=== PATIENT | male | born 1945 | race Caucasian/White ===

== ENCOUNTER 2024-10-12 01:37 | Emergency (ER) | payer MEDICARE, SELFPAY ==
--- OUTSIDE RECORDS SUMMARY | 2024-10-12 01:39 | XMS_ITS | Clinical Summary ---
Author Organization [facility] Address [address] [place] [address] Care Team Providers Care Pony Worker Name Role Phone Parker Reeves MD Primary Care Provider Roddy hernandez Allergies No known active allergies Social History Tobacco Use Types Packs/Day Years Used Date Smoking Tobacco: Never Smokeless Tobacco: Never Alcohol Use Standard Drinks/Week Comments Yes 0 (1 standard drink = 0.6 oz pur e alcohol) occasional AUDIT-C Answer Date Recorded Frequency of Alcohol Consumption Never 01/02/2019 Average Number of Drinks Not on file 019 Frequency of Binge Drinking Not on file 07/2018 Sex and Gender Information Value Date Recorded Sex Assigned at Not on file Legal Sex Male 7:03 PM CDT Gender Identity Not on file Sexual Orientation Not on file Last Filed Vital Signs Vital Sign Reading Time Taken Comments Blood Pressure 133/83 01/02/2019 3:05 PM CDT Pulse 80 01/02/2019 3:05 PM CDT Temperature 36.5 C (97.7 F) 01/02/2019 3:05 PM CDT Respiratory Rate 16 01/02/2019 3:05 PM CDT Oxygen Saturation 95% 01/02/2019 3:05 PM CDT Inhaled Oxygen Concentration - - Weight 83.9 kg (185 lb) 01/02/2019 3:05 PM CDT Height 177.8 cm (5' 10 ) 01/02/2019 3:05 PM CDT Body Mass Index 26.54 01/02/2019 3:05 PM CDT Plan of Treatment Health Maintenance Due Date Last Done Comments DTaP, Tdap and Td Vaccines ( 1 - Tdap) 10[birth year]09/1964 Annual Medicare Wellness Visit 2009 Pneumococcal Vaccine: 65+ Years (2 of 2 - PPSV23 or PCV20) 04/19/2017 04/19/2016 RSV Immunization or 60+ Years (1 - 1-dose 75+ series) 10/09/2019 COVID-19 Vaccine (3 - 2023-2 5 season) 2024 09/10/2020, 08/07/2020 Zoster Vaccines Completed 08/04/2018, 03/13/2018, 01/12/2012 Meningococcal B Vaccine Aged Out No l onger eligible based on patient's age to complete this topic Meningococcal Vaccine Aged Out No jude clair eligible based on patient's age to complete this topic RSV Immunizations Under 20 Months Aged Out No longer eligible b ased on patient's age to complete this topic Insurance MED REPLACE [facility] MEDICARE [place] [id number] MED REPLACE [facility] MEDICARE Care Teams Pony Worker Relationship Specialty Start Date End Date Parker Reeves MD PCP - General INTERNAL MEDICINE 01/02/19
--- OUTSIDE RECORDS SUMMARY | 2024-10-12 01:39 | XMS_ITS | Encounter Summary ---
Author Organization [facility] Address [address] [place] [address] Phone Care Team Providers Care Tour Actor Name Role Phone Bhavna Land MD Primary Care Provider [phone] Balaji Tovar MD PhD Unavailable [phone] Kianna Rodríguez PILOT BOAT OPERATOR Unavailable [phone] Kaur Fishman OD Unavailable [phone] Encounter Details Date Type Department Care Team (Latest Contact Info) Description 06/12/2024 Orders Only [facility] Scanning, Provider Social History Tobacco Use Types Packs/Day Years Used Date Smoking Tobacco: Never Passive Smoke Exposure: Never Smokeless Tobacco: Never Alcohol Use Standard Drinks/Week Comments Yes 1 (1 standard drink = 0.6 oz pur e alcohol) rare AUDIT-C Answer Date Recorded Q1: How often do you have a drink containing alc ohol? Never 03/28/2024 Q2: How many drinks containi ng alcohol do you have on a typical day when you are drinking? 1 or 2 03/28/2024 Q3: How often do you have six or more drinks on one occasion? Never 03/28/2024 PHQ-2 Answer Date Recorded PHQ-2 Total Score (If total score is 3 or more points, staff should administer the PHQ-9) 0 05/04/2024 PHQ-9 Answer Date Recorded PHQ-9 Total Score 6 05/03/2024 Personal Safety Answer Date Recorded Have you ever been in or are you currently in a harmful physical or emotional relationship or is someone making you feel afraid or unsafe? 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 Gender Identity Male 12/20/2019 7:46 PM CDT Sexual Orientation Straight 12/20/2019 7: 46 PM CDT documented as of this encounter Plan of Treatment Scheduled Procedures Name Priority Associated Diagnoses Date/Ti me COLONOSCOPY Screening for colon cancer documented as of this encounter Procedures Procedure Name Priority Date/Time Associated Diagnosis Comments SCAN - RADIOLOGY/IMAGING 06/12/2024 SCAN - LABS 06/12/2024 documented in this encounter Results * SCAN - LABS (06/12/2024) us Provider Scanning Final Result * SCAN - RADIOLOGY/IMAGING (06/12/2024) Anatomical Region Laterality Modality Other us Provider Scanning Edited Result - Final documented in this encounter Visit Diagnoses Not on filedocumented in this encounter Care Teams Tour Actor Relationship Specialty Start Date End Date Bhavna Land MD [address] [phone] PCP - General Sleep Medicine 12/11/20 Balaji Tovar MD PhD [address] [facility] [address] [place] [address] Medical Oncologist/Assistant Sales Director Medical Oncology 01/25/24 Kianna Rodríguez NP [address] [phone] Internal Medicine 01/25/24 Kaur Fishman OD [address] [phone] Referring Physician Optometry 09/14/24 documented as of this encounter
--- OUTSIDE RECORDS SUMMARY | 2024-10-12 01:40 | XMS_ITS | Clinical Summary ---
Author Organization [facility] Address [address] Aguayo: Epic Prelude ADT JOR[place] A SPICER [address] Care Team Providers Care Catering Director Name Role Phone Unavailable Primary Care Provider Unavailabl e Allergies Active Allergy Reactions Criticality Noted Date Comments Tramadol Unknown 07/07/2013 Vancomycin Hcl Unknown 07/07/2013 Active Problems Problem Noted Date Diagnosed Date Hyperlipidemia 07/07/2013 Type II or unspecified type diabetes mellitus without mention of complication, not stated as uncontrolled 07/07/2013 Encounters Date Type Department Care Team Description 10/03/2024 External Device Data [facility] ABSTRACTION Provider, Abstract 09/20/2024 External Device Data [facility] ABSTRACTION Provider, Abstract 09/11/2024 2:15 PM CDT Ancillary Procedure [facility] [place] [address] [place] [address] Balaji Tovar MD 09/09/2024 External Device Data [facility] ABSTRACTION Provider, Abstract 09/08/2024 External Device Data [facility] ABSTRACTION Provider, Abstract 09/06/2024 9:00 AM HEAD IRRIGATOR Ancillary Procedure [facility] [place] [address] [place] [address] Balaji Tovar MD Mass of knee, left (Primary Dx); 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 External Device Data [facility] ABSTRACTION Provider, Abstract 08/23/2024 External Device Data [facility] ABSTRACTION Provider, Abstract 08/01/2024 External Device Data [facility] ABSTRACTION Provider, Abstract from Last 3 Months Family History Medical History Relation Name Comments Healthy Brother 1 Healthy Brother 2 Other Father old age Healthy Mother Relation Name Status Comments Brother 1 Alive Brother 2 Alive Father Mother Alive Social History Tobacco Use Types Packs/Day Years Used Date Smoking Tobacco: Never Smokeless Tobacco: Never Alcohol Use Standard Drinks/Week Comments No 0 (1 standard drink = 0.6 oz pur e alcohol) Sex and Gender Information Value Date Recorded Sex Assigned at Not on file Legal Sex Male 7:57 AM HEAD IRRIGATOR Gender Identity Not on file Sexual Orientation Not on file Plan of Treatment Health Maintenance Due Date Last Done Comments DIABETES MICROALBUMIN ANNUAL SCREEN 1963 LDL CHOLESTEROL ANNUAL 1963 RSV VACCINE (60+ or ) (1 - 1-dose 75+ series) 10/09/2019 DIABETES ANNUAL RETINAL EXAM 12/24/2020 12/25/2019, 03/21/2019 COVID-19 Vaccine (2023-2 5 season) 2024 03/31/2023, 04/07/2022, 10/02/2021, Additional history exists DIABETES HBA1C Q 6 MONTHS 11/01/2024 05/04/2024, DIABETES ANNUAL FOOT EXAM 05/04/2025 05/04/2024 DTAP/TDAP/TD VACCINES (2 - T d or Tdap) 04/29/2026 04/29/2016 PNEUMOCOCCAL VACCINE 50+ YEARS Completed 04/14/2017 , 04/19/2016 ZOSTER VACCINE Completed 08/04/2018, 03/05, 03/13/2018, Additional history exists COLORECTAL SCREENING Discontinued 01/07/2023, 01/08/20 23 Colorectal Cancer Screening Discontinued INFLUENZA VACCINE Completed 04/06/2024, , 03/18/2021, Additional history exists FIT-DNA Q 3 years Discontinued FIT/FOBT Q 1 year Discontinued Flex Sig/CT Colonography Q 5 years Discontinued Procedures Procedure Name Priority Date/Time Associated Diagnosis Comments MRI KNEE W WO CONTRAST LEFT Routine 09/11/2024 2:51 PM CDT Mass of knee, left CT CHEST ABDOMEN PELVIS W CONT Routine 09/06/2024 9:17 AM HEAD IRRIGATOR Mass of knee, left Endotheliosarcoma (CMS/HCC) POC CREATININE Routine 09/06/2024 9:04 AM HEAD IRRIGATOR Mass of knee, left from Last 3 Months Results * MRI KNEE W WO CONTRAST LEFT (09/11/2024 2:51 PM CDT) Anatomical Region Laterality Modality Lower Extremity Magnetic Resonan ce 09/11/2024 2:53 PM CDT Impressions 09/11/2024 3:14 PM CDT IMPRESSION: 1. Mild enhancement at the resection bed as expected with no evidence of mass recurrence or new mass. 2. Expected postoperative changes. Follow-up according to cancer treatment protocol. Narrative 09/11/2024 3:14 PM CDT EXAM: MRI KNEE W WO CONTRAST LEFT DATE: 09/11/2024 HISTORY: Mass of knee, left. Sarcoma, status post resection. COMPARISON: MRI of the left knee from 06/12/2024 and 02/10/2024. TECHNIQUE: Multiplanar, multisequence pre and post IV contrast. Gadopiclenol 0.5 mmol per milliliter IV, 9 mL given. FINDINGS: The masslike area of sclerosis noted distal thigh that is involving the gracilis muscle and vastus medialis muscle remain relatively stable in size since the prior study. The area of STIR hyperintensity and muscle fibers measures 4.2 x 6.1 cm compared with 5.3 x 6.5 cm. Previously seen fluid collection at the distal gracilis muscle belly at the surgical site has apparently resolved. High T2 signal and low T1 signal in the resection bed and muscle belly and there is disorganized fibers and appears to be edema within the muscle fibers is nonenhancing and is not significantly changed since the prior postoperative MRI. On postcontrast imaging there is some enhancement in the resection bed similar to the prior study but no focal nodular growth. Bone marrow is normal. Procedure Note Ja Anglin MD - 09/11/2024 EXAM: MRI KNEE W WO CONTRAST LEFT DATE: 09/11/2024 HISTORY: Mass of knee, left. Sarcoma, status post resection. COMPARISON: MRI of the left knee from 06/12/2024 and 02/10/2024. TECHNIQUE: Multiplanar, multisequence pre and post IV contrast. Gadopiclenol 0.5 mmol per milliliter IV, 9 mL given. FINDINGS: The masslike area of sclerosis noted distal thigh that is involving the gracilis muscle and vastus medialis muscle remain relatively stable in size since the prior study. The area of STIR hyperintensity and muscle fibers measures 4.2 x 6.1 cm compared with 5.3 x 6.5 cm. Previously seen fluid collection at the distal gracilis muscle belly at the surgical site has apparently resolved. High T2 signal and low T1 signal in the resection bed and muscle belly and there is disorganized fibers and appears to be edema within the muscle fibers is nonenhancing and is not significantly changed since the prior postoperative MRI. On postcontrast imaging there is some enhancement in the resection bed similar to the prior study but no focal nodular growth. Bone marrow is normal. IMPRESSION: 1. Mild enhancement at the resection bed as expected with no evidence of mass recurrence or new mass. 2. Expected postoperative changes. Follow-up according to cancer treatment protocol. us Balaji Tovar MD MR ORDERABLES Final R esult * CT CHEST ABDOMEN PELVIS W CONT (09/06/2024 9:17 AM HEAD IRRIGATOR) Anatomical Region Laterality Modality Chest Computed Tomogra phy 09/06/2024 9:05 AM HEAD IRRIGATOR Addenda Addendum by Mulugeta Todd MD on 09/06/2024 12:16 PM HEAD IRRIGATOR Findings communicated to Dr. Tovar's office at the completion of the exam 09/06/2024 12:07pm by Diane ruiz with [employer] she will pass along to MD Ng 09/06/2024 11:00 AM HEAD IRRIGATOR IMAGING STUDIES: CT CHEST ABDOMEN PELVIS W CONT DATE: 09/06/2024 9:17 AM COMPARISON STUDIES: CT chest, abdomen and pelvis June 12, 2024 CLINICAL HISTORY: Mass of knee, left; Endotheliosarcoma (CMS/HCC). Staging. TECHNIQUE: Axial images were acquired from the thoracic inlet to the symphysis pubis after the administration of intravenous contrast. Sagittal and coronal reconstructions were evaluated. Radiation dose reduction technique was utilized. CONTRAST: IOPAMIDOL 61 % INTRAVENOUS SOLUTION (SINGLE USE VIAL) Given:100 mL CHEST Trachea and airway: No endotracheal lesions. Pleural space: No pleural effusion or pneumothorax. Lung parenchyma: Lungs are clear, no airspace disease. Left lower lobe perifissural small flat fusiform nodule 8 x 2 mm image 58. Mediastinum: The visible lymph nodes do not appear pathologically enlarged. Axillary and supraclavicular soft tissues: No obvious lymphadenopathy. Cardiovascular: No aneurysmal dilation. Mild atherosclerotic aorta.. Coronary artery calcifications. Bones: No significant bony abnormalities. IMPRESSION CHEST: 1. No evidence of metastatic disease to the chest. Stable benign-appearing perifissural nodule left major fissure. Rest as above. ABDOMEN AND PELVIS: TECHNIQUE: Helical axial images were acquired from the lung bases to the symphysis pubis after the administration of intravenous contrast. Sagittal and coronal reconstructions were created. Radiation dose reduction technique was utilized. FINDINGS: ABDOMEN: Hepatobiliary: Redemonstration of a simple appearing cyst in the right hepatic lobe 18 mm in diameter. Single calcified 8 mm gallstone, no surrounding inflammatory changes Spleen: No lesions, no splenomegaly. Pancreas: No focal lesions. Adrenal glands: No focal lesions. Kidneys: No focal lesions. No hydronephrosis or nephrolithiasis. Redemonstration of bilateral simple appearing cysts, the largest is located in the right kidney upper pole measures 3.7 cm. Retroperitoneal and mesenteric space: The visible lymph nodes do not appear pathologically enlarged. Stomach and bowel: Nonobstructive pattern. Small bowel malrotation with the angle of Treitz located to the right of midline. Aorta: No significant atherosclerotic disease or aneurysmal dilation. PELVIS: Appendix: Not pathologically distended. Colon and rectum: Extensive diverticulosis of the descending colon and sigmoid. Short segment of fat stranding involving the distal descending colon with a satellite probably reactive subcentimeter lymph node, mucosal thickening, no fluid collection abscess or perforation. Genitourinary: The prostate does not appear pathologically enlarged. No urinary bladder stones or abnormal wall thickening. Pelvic space: Small fat-containing right inguinal hernia.. BONES AND OTHER INCIDENTALS: Chronic sacroiliitis with right-sided bridging osteophytes. Severe lower lumbar facet arthropathy. Severe degenerative disc disease L5-S1. Right worse than left hip osteoarthritis. IMPRESSION ABDOMEN AND PELVIS: 1. No conclusive evidence of metastatic disease to the abdomen or pelvis. 2. Acute diverticulitis of the distal descending colon, correlate clinically, consider colonoscopy if not done in the recent past to exclude underlying lesion. 3. Redemonstration of simple appearing hepatic and renal cysts. 4. Other incidental findings including: Congenital small bowel malrotation. Small fat-containing right inguinal hernia. Skeletal degenerative changes and findings as described above. Procedure Note Mulugeta Todd MD - 09/06/2024 IMAGING STUDIES: CT CHEST ABDOMEN PELVIS W CONT DATE: 09/06/2024 9:17 AM COMPARISON STUDIES: CT chest, abdomen and pelvis June 12, 2024 CLINICAL HISTORY: Mass of knee, left; Endotheliosarcoma (CMS/HCC). Staging. TECHNIQUE: Axial images were acquired from the thoracic inlet to the symphysis pubis after the administration of intravenous contrast. Sagittal and coronal reconstructions were evaluated. Radiation dose reduction technique was utilized. CONTRAST: IOPAMIDOL 61 % INTRAVENOUS SOLUTION (SINGLE USE VIAL) Given:100 mL CHEST Trachea and airway: No endotracheal lesions. Pleural space: No pleural effusion or pneumothorax. Lung parenchyma: Lungs are clear, no airspace disease. Left lower lobe perifissural small flat fusiform nodule 8 x 2 mm image 58. Mediastinum: The visible lymph nodes do not appear pathologically enlarged. Axillary and supraclavicular soft tissues: No obvious lymphadenopathy. Cardiovascular: No aneurysmal dilation. Mild atherosclerotic aorta.. Coronary artery calcifications. Bones: No significant bony abnormalities. IMPRESSION CHEST: 1. No evidence of metastatic disease to the chest. Stable benign-appearing perifissural nodule left major fissure. Rest as above. ABDOMEN AND PELVIS: TECHNIQUE: Helical axial images were acquired from the lung bases to the symphysis pubis after the administration of intravenous contrast. Sagittal and coronal reconstructions were created. Radiation dose reduction technique was utilized. FINDINGS: ABDOMEN: Hepatobiliary: Redemonstration of a simple appearing cyst in the right hepatic lobe 18 mm in diameter. Single calcified 8 mm gallstone, no surrounding inflammatory changes Spleen: No lesions, no splenomegaly. Pancreas: No focal lesions. Adrenal glands: No focal lesions. Kidneys: No focal lesions. No hydronephrosis or nephrolithiasis. Redemonstration of bilateral simple appearing cysts, the largest is located in the right kidney upper pole measures 3.7 cm. Retroperitoneal and mesenteric space: The visible lymph nodes do not appear pathologically enlarged. Stomach and bowel: Nonobstructive pattern. Small bowel malrotation with the angle of Treitz located to the right of midline. Aorta: No significant atherosclerotic disease or aneurysmal dilation. PELVIS: Appendix: Not pathologically distended. Colon and rectum: Extensive diverticulosis of the descending colon and sigmoid. Short segment of fat stranding involving the distal descending colon with a satellite probably reactive subcentimeter lymph node, mucosal thickening, no fluid collection abscess or perforation. Genitourinary: The prostate does not appear pathologically enlarged. No urinary bladder stones or abnormal wall thickening. Pelvic space: Small fat-containing right inguinal hernia.. BONES AND OTHER INCIDENTALS: Chronic sacroiliitis with right-sided bridging osteophytes. Severe lower lumbar facet arthropathy. Severe degenerative disc disease L5-S1. Right worse than left hip osteoarthritis. IMPRESSION ABDOMEN AND PELVIS: 1. No conclusive evidence of metastatic disease to the abdomen or pelvis. 2. Acute diverticulitis of the distal descending colon, correlate clinically, consider colonoscopy if not done in the recent past to exclude underlying lesion. 3. Redemonstration of simple appearing hepatic and renal cysts. 4. Other incidental findings including: Congenital small bowel malrotation. Small fat-containing right inguinal hernia. Skeletal degenerative changes and findings as described above. us Balaji Tovar MD CT ORDERABLES Edited Result - Final * POC CREATININE (09/06/2024 9:04 AM HEAD IRRIGATOR) CREATININE POC 1.20 0.60 - 1.30 mg/dL 09/06/2024 9:04 AM HEAD IRRIGATOR [employer] [facility] Comment:The GFR result is no t clinically significant on patients <18 or >70 years of age. GFR, >60 mL/min/1.7 3 sq meter 09/06/2024 9:04 AM HEAD IRRIGATOR [employer] [facility] GFR POC 58 mL/min/1.7 3 sq meter 09/06/2024 9:04 AM [employer] [facility] Comment: eGFR has not been validated for use in the elderly (> 70 years of age), women, patients with serious co-morbid conditions, or persons with extremes of body size or muscle mass and should also be interpreted with caution in patients with acute kidney failure, dialysis dependent patients, patients reporting exceptional dietary intake (e.g. vegetarian diet, high protein diets, creatine supplementation), and patients with severe liver disease. Based on National Kidney Disease Education Program If patient is , please refer to the GFR result. Blood, whole 09/06/2024 9:04 AM HEAD IRRIGATOR 09/06/2024 9:06 AM HEAD IRRIGATOR us Balaji Tovar MD POINT OF CARE TESTING F inal Result [facility] [place]# [id number] [address] [place] [address] from Last 3 Months Insurance [facility]
--- OUTSIDE RECORDS SUMMARY | 2024-10-12 01:40 | XMS_ITS | Referral Summary ---
Author Organization [facility] Address [address] [place] [address] Care Team Providers Care Executor Of Estate Name Role Phone Bhavna Land MD Primary Care Provider [phone] Balaji Tovar MD PhD Unavailable [phone] Kianna Rodríguez CAR UNLOADER HELPER Unavailable [phone] Kaur Fishman OD Unavailable [phone] Encounters Date Type Department Care Team Description 09/18/2024 1:00 PM CDT Office Visit [facility] Ophthalmology [address] [facility] 2nd Floor [address] [place] [address] Stefan Beltrán MD AMD (age-related macular degeneration), bilateral (Primary Dx) 09/13/2024 Orders Only [facility] Oncology [address] [place] [address] Floor 6 [place] [id number] Balaji Tovar MD PhD Sarcoma of left thigh (HCC) (Primary Dx) 09/13/2024 2:35 PM CDT Telemedicine [facility] Oncology [address] [place] [address] 6 [place] [id number] Balaji Tovar MD PhD Sarcoma of left thigh (HCC) (Primary Dx); Mass of left knee 09/11/2024 Orders Only [facility] Scanning, Provider 09/11/2024 Telephone [facility] Ophthalmology [address] [facility] 6th [place] [address] No, Physician 09/07/2024 Orders Only [facility] Hematology [address] [facility] Floor [address] [place] [address] Balaji Tovar MD PhD Sarcoma of left thigh (HCC) (Primary Dx) 09/07/2024 1:00 PM PIG LEAD MELTER HELPER Office Visit [facility] [address] [facility] [address] [place] [address] Kaur Fishman, OD AMD (age-related macular degeneration), bilateral (Primary Dx) 09/06/2024 Orders Only [facility] Scanning, Provider 08/28/2024 Orders Only [facility] Oncology [address] [facility] Floor 6 [place] [address] Balaji Tovar MD PhD History of sarcoma (Primary Dx) from Last 3 Months Allergies Active Allergy Reactions Criticality Noted Date Comments Lisinopril Cough,Rash Medium 04/02/2021 [facility] cough Medications simvastatin (ZOCOR) 40 mg tabletIndications: Mixed hyperlipidemia TAKE 1 TABLET NIGHTLY 90 tablet 3 09/28/19 24 Active losartan (COZAAR) 25 mg tabletIndications: Type 2 diabetes mellitus without complication, without long-term current use of insulin (HCC) TAKE 1 TABLET DAILY 90 tablet 3 09/28/19 24 Active krill oil 500 mg capsule Take 500 mg by mouth daily 01/05/20 21 Active ulwdwbbe-wah-QV-ly copen-lutein (Complete MV Adult 50 Plus) 0.4 mg-300 mcg- 250 mcg tabletIndications: Vitamin Deficiency Prevention Take 1 tablet by mouth daily 11/05/19 21 Active magnesium aspart,citrate,oxi de 400 mg magnesium capsuleIndications :hypomagnesemia Take 1 tablet by mouth daily Active tamsulosin (FLOMAX) 0.4 mg extended release capsule Take 1 capsule (0.4 mg total) by mouth daily with dinner 04/05/20 24 Active senna-docusate (PERICOLACE) 8.6-50 mgIndications:cons tipation Take 2 tablets by mouth 2 (two) times a day 04/05/20 Active polyethylene glycol (MIRALAX) 17 gram/dose bulk powderIndications: constipation Take 17 g by mouth daily 04/05/20 Active ondansetron ODT (ZOFRAN-ODT) 4 mg disintegrating tabletIndications: nausea and vomiting Take 1 tablet (4 mg total) by mouth every 6 (six) hours as needed for nausea or vomiting 04/05/20 Active methocarbamoL (ROBAXIN) 750 mg tablet Take 1 tablet (750 mg total) by mouth 3 (three) times a day 04/05/20 Active loratadine (CLARITIN) 10 mg tablet Take 1 tablet (10 mg total) by mouth daily 04/06/20 Active gabapentin (NEURONTIN) 300 mg capsuleIndications :Pain Take 1 capsule (300 mg total) by mouth 3 (three) times a day 04/05/20 Active fluticasone propionate (FLONASE) 50 mcg/actuation nasal spray Administer 1 spray into each nostril daily 04/06/20 Active cyclobenzaprine (FLEXERIL) 10 mg tabletIndications: Muscle Spasm Take 1 tablet (10 mg total) by mouth every 8 (eight) hours as needed for muscle spasms 04/05/20 Active celecoxib (CeleBREX) 200 mg capsuleIndications :Pain Take 1 capsule (200 mg total) by mouth 2 (two) times a day 04/05/20 Active bisacodyL (DULCOLAX) 10 mg suppositoryIndicat ions:constipation, if cannot tolerate oral Insert 1 suppository (10 mg total) into the rectum 2 (two) times a day as needed for constipation 04/05/20 Active acetaminophen 500 mg capsuleIndications :Pain Take 2 capsules (1,000 mg total) by mouth every 6 (six) hours 04/05/20 Active enoxaparin (LOVENOX) 40 mg/0.4 mL syringe Inject 0.4 mL (40 mg total) under the skin daily Once daily for 30 days 04/05/20 Active aspirin 81 mg enteric coated tablet Take 1 tablet (81 mg total) by mouth daily Once daily for 30 days 04/05/20 Active testosterone 20.25 mg/1.25 gram (1.62 %) gel in metered-dose pumpIndications:Te stosterone deficiency APPLY THE CONTENTS OF 4 PUMP ACTUATIONS (81MG) ON THE SKIN DAILY 300 g 5 05/04/20 Active diazePAM (VALIUM) 5 mg tablet Take 1 tablet (5 mg total) by mouth once for 1 dose Prior to MRI scan. 1 tablet 09/14/19 Active Active Problems Problem Noted Date Diagnosed Date Open wound of leg, left, initial encounter 03/28 Mass of left thigh 03/21/2024 Open wound of left lower leg 03/13/2024 Grief 10/28/2023 Assessment & Plan (10/28/2023 7:36 PM CDT): In the setting of his partner of 5 years passing away in July. Patient is coping and grief response is appropriate. He will let me know if he finds grief symptoms increase or become more problematic for day-to-day quality of life. Eczema 10/21/2022 Assessment & Plan (04/28/2023 9:11 AM CDT): Chronic, stable. Continue as needed fluocinonide. Assessment & Plan (10/21/2022 11:23 AM CDT): Chronic, stable. Continue as needed topical steroids. Screening for colon cancer 10/21/2022 Lumbar degenerative disc disease 04/16/2022 Assessment & Plan (10/28/2023 7:36 PM CDT): Chronic, with benefit from physical therapy. We discussed the importance of continuing with regular exercise routine. Trial of meloxicam for pain relief. Consider trial of Lyrica in future. Assessment & Plan (04/16/2022 1:58 PM CDT): Chronic, persistent, with significant impact to patient's quality of life. Referral placed to Orthopedics for further evaluation and review of any available treatment options. Encounter for Medicare annual wellness exam 04/04 Assessment & Plan (04/28/2023 9:12 AM CDT): Patient is doing well overall. No substance use of concern. Healthy weight management recommended. Blood pressures are well controlled. We will check routine labs today. He is up-to-date on vaccines and age-appropriate cancer screening. Assessment & Plan (04/16/2022 1:58 PM CDT): From a preventative care standpoint no substance use of concern. Healthy weight management recommended. Blood pressures are well controlled. We will check routine labs today. Flu shot recommended for the fall. Otherwise up-to-date on labs. Up-to-date on cancer screening. Chronic cough 09/01/2021 Assessment & Plan (09/10/2021 10:31 AM PIG LEAD MELTER HELPER): Chronic, not improved with oral antihistamine and intranasal steroid spray. Referral placed to ENT for further evaluation. Assessment & Plan (09/01/2021 1:58 PM PIG LEAD MELTER HELPER): Of several months duration. No obvious medication culprits. No recent infections to suggest this is a post viral cough. We discussed other common causes of chronic cough including acid reflux, rhinosinusitis with postnasal drip, and asthma. He has no history of lung disease and denies any acid reflux symptoms. Therefore we will start by treating this as allergic versus nonallergic rhinosinusitis. Will have patient start on an oral antihistamine and resume use of Nasacort. I have ordered a chest x-ray. Further steps in evaluation could include CT chest and lung function testing. Lumbar radiculopathy 12/29/2020 Assessment & Plan (10/28/2023 7:37 PM CDT): Chronic, with concern that left thigh and leg numbness is related to lumbar degenerative disc disease. Given that numbness is more medial than lateral, lower suspicion for lateral femoral cutaneous nerve entrapment. Continue management of lumbar degenerative disc disease and monitor. Could consider nerve conduction testing if symptoms persist or worsen. Spinal stenosis of lumbosacral region 12/29/2020 Hyperlipidemia 12/23/2020 Assessment & Plan (04/28/2023 9:12 AM CDT): Chronic, stable, effectively treated with simvastatin. Continue current therapy. Assessment & Plan (10/21/2022 11:22 AM CDT): Chronic, stable, effectively treated with simvastatin. Continue current therapy. Assessment & Plan (04/16/2022 1:57 PM CDT): Chronic, stable. Continue simvastatin. Labs today. Assessment & Plan (12/23/2020 9:23 PM CDT): Check lipid panel today. Refills of simvastatin provided. Testosterone deficiency 12/23/2020 Assessment & Plan (10/28/2023 7:37 PM CDT): Chronic, effectively treated with testosterone gel based on most recent lab work. Will recheck labs today. Continue AndroGel. Assessment & Plan (04/28/2023 9:12 AM CDT): Chronic, effectively treated with testosterone gel based on most recent lab work. Will recheck labs today and refill testosterone therapy, adjusting dose as indicated. Assessment & Plan (10/21/2022 11:22 AM CDT): Chronic, previously effectively treated with testosterone gel based on most recent lab work. Will recheck labs today and refilled testosterone therapy, adjusting dose as indicated. Assessment & Plan (04/16/2022 1:57 PM CDT): Chronic. Recheck testosterone today. Uptitration of testosterone replacement therapy if indicated. Assessment & Plan (01/10/2021 4:40 PM CDT): We discussed AndroGel formulation in the pump which he currently has. We will try switching him to the packets to see if this is more convenient and cost effective. Assessment & Plan (12/23/2020 9:23 PM CDT): Recheck testosterone level. Refill of androgel provided. 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 Continue testosterone therapy. Continue sildenafil as needed with benefit. Assessment & Plan (04/16/2022 1:58 PM CDT): Chronic. Continue testosterone therapy. Continue sildenafil as needed. Assessment & Plan (12/23/2020 9:24 PM CDT): Continue testosterone supplementation. Prescription for sildenafil provided. Chronic bilateral low back pain with right-sided sciatica 12/23/2020 Assessment & Plan (10/21/2022 11:22 AM CDT): Chronic, much improved following physical therapy. Continue regular exercises and monitor. Assessment & Plan (03/11/2021 11:13 AM CDT): Chronic, uncontrolled. We discussed possible next steps in management including Lyrica in place of gabapentin (likely better for radicular symptoms than low back OA pain); oral or topical antiinflammatory agents; or evaluation for procedure by pain management. He is interested in possible treatment by pain management, particularly since he would like to avoid a daily pill if possible. Will obtain lumbar MRI given no recent MRI and presence of radicular symptoms and refer to pain management at [facility]. Assessment & Plan (01/10/2021 4:41 PM CDT): Now back to baseline pain levels. I think trying a new chiropractor is worthwhile. We discussed gentle stretching and strengthening. If pain becomes more bothersome chronically we can try a higher dose of gabapentin or Lyrica instead. He was counseled that if he has another acute episode of pain he can contact me for another prednisone Dosepak, though he and I are in agreement that we want to limit use of steroids as much as possible due to potential risk even from short-term courses. Assessment & Plan (12/23/2020 9:24 PM CDT): We discussed possible options for management and decided on a trial of gabapentin to be taken as needed, such as with driving. Pseudophakia of both eyes 09/16/2020 Assessment & Plan (04/15/2023 2:11 PM CDT): Centered and stable, monitor Assessment & Plan (10/05/2022 10:26 AM CDT): Centered and stable, monitor Assessment & Plan (04/06/2022 3:19 PM CDT): Lenses centered and stable, monitor Assessment & Plan (09/29/2021 1:12 PM CDT): Centered and stable, monitor Assessment & Plan (03/31/2021 10:47 AM CDT): Centered and stable, monitor Assessment & Plan (09/16/2020 10:44 AM CDT): Centered and stable, monitor Allergic conjunctivitis of both eyes 09/16/2020 Type 2 diabetes mellitus wit hout complication, without long-term current use of insulin 09/16/2020 Assessment & Plan (10/28/2023 7:37 PM CDT): Chronic, stable, well controlled without need for medication therapy. Continue losartan, simvastatin. Assessment & Plan (04/28/2023 9:12 AM CDT): Chronic, stable, well controlled without need for medication therapy. Continue losartan, simvastatin. Assessment & Plan (10/21/2022 11:21 AM CDT): Chronic, stable, well controlled without need for medication therapy. Continue losartan, simvastatin. Assessment & Plan (10/05/2022 10:26 AM CDT): No diabetic retinopathy (DR) . Stressed importance of tight blood glucose control/ diet/exercise and A1C <7% to reduce the risk of diabetic complications. Report sent to PCP/endo. Assessment & Plan (04/16/2022 1:57 PM CDT): Chronic, stable, well controlled with diet and lifestyle alone based on last A1c. Labs today. Continue statin, losartan. Assessment & Plan (04/06/2022 3:18 PM CDT): DFE next visit Assessment & Plan (09/10/2021 10:31 AM PIG LEAD MELTER HELPER): Chronic, stable, effectively treated with diet and exercise without need for pharmacologic therapy. Recheck A1c today. Goal A1c less than 7. Assessment & Plan (03/11/2021 11:11 AM CDT): Chronic, stable. Recheck labs today. Restart Januvia if A1c greater than 7. Assessment & Plan (12/23/2020 9:23 PM CDT): Well controlled, with last A1c in 2019 of 5.8. We discussed checking A1c today and taking a break from Januvia for 3 months, at which time we will recheck A1c and consider whether Januvia should be restarted. Target A1c is less than 7.0. Assessment & Plan (09/16/2020 10:59 AM CDT): NO diabetic retinopathy (DR) . Stressed importance of tight blood glucose control/ diet/exercise and A1C <7% to reduce the risk of diabetic complications. Report sent to PCP/endo. Right posterior capsular opacification 0 Assessment & Plan (12/25/2019 8:51 AM CDT): Visually significant PCO right eye (OD). R/b/a discused and the patient decided to proceed. All questions were answered. (also see Procedure note) After proper consent was obtained, the patient was carefully transported to the laser room where the operative eye was anesthetized. Using a contact lens, an opening was created in the posterior capsule without difficulty. The lens was then removed, the eye irrigated, and postop drops given. The patient left the laser suite in good condition and the intraocular pressure was checked 60 minutes post-op in the office. 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 Assessment & Plan (04/15/2023 2:11 PM CDT): Flat, no concerning features, Stable, monitor Assessment & Plan (10/05/2022 10:27 AM CDT): Flat, no concerning features, Stable, monitor Assessment & Plan (09/29/2021 1:11 PM CDT): Stable, monitor Assessment & Plan (03/31/2021 10:46 AM CDT): Stable, monitor Assessment & Plan (01/24/2020 12:37 PM CDT): Stable, monitor Assessment & Plan (12/01/2019 4:26 PM CDT): Difficult view today due to PCO Monitor Assessment & Plan (11/23/2018 11:06 AM CDT): Flat, no heme or fluid Monitor Photo today PCO (posterior capsular opacification), bilatera l 11/23/2018 Assessment & Plan (03/21/2019 10:51 AM CDT): Pseuophakia both eyes (OU)- Surgery performed in [place], [place] around 2009. Uncomplicated. Visually significant PCO left eye (OS) due to central involvement. right eye (OD) without sig symptoms. R/b/a discused and the patient decided to proceed to proceed with YAG left eye (OS) today. All questions were answered. (also see Procedure note) After proper consent was obtained, the patient was carefully transported to the laser room where the operative eye was anesthetized. Using a contact lens, an opening was created in the posterior capsule without difficulty. The lens was then removed, the eye irrigated, and postop drops given. The patient left the laser suite in good condition and the intraocular pressure was checked 60 minutes post-op in the office. Assessment & Plan (11/23/2018 11:06 AM CDT): Refer for yag caps OS AMD (age-related macular degeneration), zeb denis 11/23/2018 Assessment & Plan (09/18/2024 1:13 PM CDT): Sent for evaluation of macular degeneration, has drusen no change in the macula both eyes, there was no sub retinal or intraretinal fluid in either eye. I have asked that he monitor his vision using Amsler grid, we discussed blood pressure control and multivitamin therapy. In addition we encouraged smoking avoidance. I have asked her to return to see Optometry in roughly 6 months' time.. Assessment & Plan (04/15/2023 2:12 PM CDT): Stable mac oct , no cnv Ou Cont amsler and areds Assessment & Plan (10/05/2022 10:25 AM CDT): Stable mac oct , no cnv Ou Assessment & Plan (04/06/2022 3:19 PM CDT): Stable mac oct , no cnv Ou Assessment & Plan (09/29/2021 1:11 PM CDT): Dry amd both eyes (OU) Continue areds/amsler Assessment & Plan (03/31/2021 10:46 AM CDT): Dry amd both eyes (OU) Continue areds/amsler Assessment & Plan (09/16/2020 10:34 AM CDT): Dry amd both eyes (OU) Continue areds/amsler Assessment & Plan (01/24/2020 12:38 PM CDT): Areds Amsler Grid Rtc if vision is distorted or blurred Assessment & Plan (12/01/2019 4:25 PM CDT): Dry amd both eyes (OU) Continue areds/amsler Assessment & Plan (04/26/2019 9:15 AM CDT): Areds Amsler Grid Rtc if vision is distorted or blurred Assessment & Plan (11/23/2018 11:05 AM CDT): Areds Amsler Grid Rtc if vision is distorted or blurred Arthritis of carpometacarpal (CMC) joint of left thumb 06/21/2018 Overview (06/21/2018): Added automatically from request for surgery [id number] Sarcoma of left thigh 03/14/2018 Osteoarthritis of carpometacarpal (CMC) joint of thumb 04/06/2017 Resolved Problems Problem Noted Date Diagnosed Date Resolved Date 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 Differential diagnosis includes kidney stone, pyelonephritis, gallbladder disease with referred pain. Infectious etiology like pyelonephritis less likely given duration of symptoms and lack of fever, other infectious symptoms. Further evaluation is warranted with CT, labs, which I have ordered for the patient today. Diarrhea 01/06/2022 04/28/2023 Assessment & Plan (01/06/2022 1:36 PM CDT): Chronic, concerning for biliary disease given association with right-sided CVA pain. Lower suspicion for infectious etiology given no clear exposure or increased risk. Labs and CT abdomen pelvis ordered for further evaluation. If nonrevealing, consider stool studies, further evaluation for colitis. 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 21 Immunizations Immunization Administration Dates Next Due Influenza, Quad, Adjuvantate d, Intramuscular 03/21/2020 Influenza, Quadrivalent, Coco l Culture-based MDCK, Preservative Free, Antibiotic Free, Intramuscular 04/13/2019 Influenza, Quadrivalent, Hig h Dose, Preservative Free, Intrr 03/18/2021 Influenza, Trivalent, High D ose, Split, Preservative Free, Intramuscular 04/06/2024,03/14/2018,03/13/2018,04/19 Influenza, Trivalent, IM (MDV) 04/06/2024,2016 Influenza, Trivalent, Preser vative Free, Intramuscular 03/21/2020 Moderna SARS-CoV-2 Monovalen t Vaccination (12+ YRS) 10/02/2021,04/24/2021 PPD TEST 04/07/2024 Pfizer Sars-Cov-2 Bivalent V accination (12+ YRS) 03/31/2023,04/07/2022 Pneumococcal Conjugate PCV 13 04/19/2016 Pneumococcal Polysaccharide PPV23 04/14/2017 Tdap 04/29/2016 ZOSTER LIVE 01/12/2012 ZOSTER Recombinant 08/04/2018,03/14/2018, 018 Social History Tobacco Use Types Packs/Day Years [...] on file Legal Sex Male 9:16 PM PIG LEAD MELTER HELPER Gender Identity Male 12/20/2019 7:46 PM CDT Sexual Orientation Straight 12/20/2019 7: 46 PM CDT Last Filed Vital Signs Vital Sign Reading Time Taken Comments Blood Pressure 145/78 06/14/2024 8:53 AM PIG LEAD MELTER HELPER Pulse 92 06/14/2024 8:53 AM PIG LEAD MELTER HELPER Temperature 36.8 C (98.2 F) 06/14/2024 8:53 AM PIG LEAD MELTER HELPER Respiratory Rate 20 05/04/2024 1:07 PM CDT Oxygen Saturation 96% 06/14/2024 8:53 AM PIG LEAD MELTER HELPER Inhaled Oxygen Concentration - - Weight 87.5 kg (193 lb) 06/14/2024 8:51 AM PIG LEAD MELTER HELPER Height 172.7 cm (5' 7.99 ) 06/14/2024 8:51 AM CS T Body Mass Index 29.35 06/14/2024 8:51 AM PIG LEAD MELTER HELPER Plan of Treatment Scheduled Procedures Name Priority Associated Diagnoses Date/Ti me COLONOSCOPY Screening for colon cancer Medical Devices Implanted Type Area Gravure Press Set Up Operator Device Identifier Shelf Expiration Date Model / Serial / Lot Synovis [id number] Anson Microvascular 3.5mm Ring Pin Protective Cover Jaw Assembly Latex Free [id number] - [id number] Implanted:Qty: 1 on 03/28/2024 by Lloyd Gay MD at [facility] Other - see comments Left: Leg Synovis Highlight Allian [id number] 03/21/2028 [id number] / / [id number] Depuy Mitek [id number] Quickanchor Plus Ethibond 2-0 V-5 Mini [place] Suture - [id number] Implanted:Qty: 1 on 07/27/2018 by Duane Nelson MD at [facility] Left: Thumb Depuy Mitek 03/04/[id number] / / [id number] Depuy Mitek [id number] Quickanchor Plus Ethibond 2-0 V-5 Mini [place] Suture - [id number] Implanted:Qty: 1 on 07/27/2018 by Duane Nelson MD at [facility] Left: Thumb Depuy Mitek 03/04/2023 [id number] / / [id number] [employer] Ar-8978-Cp Internalbrace Kit Hand Wrist Set Implant Ligament Augmentation - [id number] Implanted:Qty: 1 on 05/31/2019 by Duane Nelson MD at [facility] Right: Wrist [employer] [id number] 04/03/2024 AR-8978- CP / / [id number] Procedures Procedure Name Priority Date/Time Associated Diagnosis Comments OCT, RETINA - OU - BOTH EYES Routine 09/18/2024 1:13 PM CDT AMD (age-related macular degeneration), bilateral COMPREHENSIVE METABOLIC PANEL Routine 09/11/2024 9:00 AM CDT Sarcoma of left thigh (HCC) CBC WITH AUTO DIFFERENTIAL Routine 09/11/2024 9:00 AM CDT Sarcoma of left thigh (HCC) SCAN - RADIOLOGY/IMAGING 09/11/2024 OCT, RETINA - OU - BOTH EYES Routine 09/07/2024 1:00 PM PIG LEAD MELTER HELPER AMD (age-related macular degeneration), bilateral SCAN - RADIOLOGY/IMAGING 09/06/2024 HEMOGLOBIN A1C Routine 05/04/2024 1:40 PM CDT Type 2 diabetes mellitus without complication, without long-term current use of insulin (HCC) LIPID PANEL Routine 05/04/2024 1:40 PM CDT Type 2 diabetes mellitus without complication, without long-term current use of insulin (HCC) ALBUMIN CREATININE RATIO, URINE Routine 05/04/2024 1:40 PM CDT Type 2 diabetes mellitus without complication, without long-term current use of insulin (HCC) COLONOSCOPY 01/07/2023 7:50 AM CDT from Last 3 Months or Most Recently Relevant to Health Maintenance Results * OCT, Retina - OU - Both Eyes (09/18/2024 1:13 PM CDT) Anatomical Region Laterality Modality Head Optical Coherenc e Tomography Narrative 09/18/2024 1:13 PM CDT Right Eye Quality was good. Scan locations included subfoveal. Progression has been stable. Left Eye Quality was good. Scan locations included subfoveal. Progression has been stable. Notes Drusen, no CNV both eyes (OU) us Stefan Beltrán MD OPHTH TOMOGRAPHY Final Res ult * CBC with auto differential (09/11/2024 9:00 AM CDT) WBC 4.8 3.8 - 10.8 Thousand/u L [facility] RBC, POC 4.95 4.20 - 5.80 Million/uL [facility] Hgb 14.8 13.2 - 17.1 g/dL [facility] Hct 45.7 38.5 - 50.0 % [facility] MCV 92.3 80.0 - 100.0 fL [facility] MCH 29.9 27.0 - 33.0 pg [facility] MCHC 32.4 32.0 - 36.0 g/dL [facility] Comment: For adults, a slight decrease in the calculated MCHC value (in the range of 30 to 32 g/dL) is most likely not clinically significant; however, it should be interpreted with caution in correlation with other red cell parameters and the patient's clinical condition. Rdw 14.2 11.0 - 15.0 % [facility] Platelets 173 140 - 400 Thousand/u L [facility] MPV 10.9 7.5 - 12.5 fL [facility] Neutrophils, abs 2,789 1,500 - 7,800 cells/uL [facility] Lymphocytes, abs 1,162 850 - 3,900 cells/uL [facility] Monocyte abs 619 200 - 950 cells/uL [facility] Eosinophils, abs 202 15 - 500 cells/uL [facility] Basophils, abs 29 0 - 200 cells/uL [facility] Neutrophils 58.1 % [facility] Lymphocyte pct 24.2 % [facility] Monocytes 12.9 % [facility] Eosinophils 4.2 % [facility] Basophils 0.6 % [facility] Blood 09/11/2024 9:00 AM CDT 09/11/2024 9:00 AM CDT Narrative [facility] - 09/11/2024 6:24 PM CDT FASTING:YES FASTING: YES us Balaji Tovar MD PhD LAB BLOOD ORDERABLE S Final Result [facility] [address] [place] [address] * (ABNORMAL) Comprehensive metabolic panel (09/11/2024 9:00 AM CDT) Glucose 168(H) 65 - 99 mg/dL [facility] Comment: Fasting reference interval For someone without known diabetes, a glucose value >125 mg/dL indicates that they may have diabetes and this should be confirmed with a follow-up test. BUN 15 7 - 25 mg/dL [facility] Creatinine 1.19 0.70 - 1.28 mg/dL [facility] eGFR 62 > OR = 60 mL/min/1.[address] [facility] BUN/creat ratio SEE NOTE: 6 - 22 (calc) [facility] Comment: Not Reported: BUN and Creatinine are within reference range. Sodium 139 135 - 146 mmol/L [facility] Potassium, pl 4.4 3.5 - 5.3 mmol/L [facility] Chloride 106 98 - 110 mmol/L [facility] CO2 27 20 - 32 mmol/L [facility] Calcium 8.5(L) 8.6 - 10.3 mg/dL [facility] Protein, sr 6.3 6.1 - 8.1 g/dL [facility] Albumin 4.2 3.6 - 5.1 g/dL [facility] GLOBULIN 2.1 1.9 - 3.7 g/dL (calc) [facility] Alb/glob ratio 2.0 1.0 - 2.5 (calc) [facility] Bilirubin, total 0.4 0.2 - 1.2 mg/dL [facility] Alk phos 47 35 - 144 U/L [facility] AST 17 10 - 35 U/L [facility] ALT (SGPT) 14 9 - 46 U/L [facility] Blood 09/11/2024 9:00 AM CDT 09/11/2024 9:00 AM CDT Narrative [facility] - 09/11/2024 6:24 PM CDT FASTING:YES FASTING: YES Balaji Tovar MD PhD LAB BLOOD ORDERABLE S Final Result [facility] [address] [place] [address] * SCAN - RADIOLOGY/IMAGING (09/11/2024) Anatomical Region Laterality Modality Other us Provider Scanning Final Result * OCT, Retina - OU - Both Eyes (09/07/2024 1:00 PM PIG LEAD MELTER HELPER) Anatomical Region Laterality Modality [facility] Tomography Narrative 09/13/2024 8:49 AM CDT Right Eye Quality was good. Scan locations included subfoveal. Progression has been stable. Left Eye Quality was good. Scan locations included subfoveal. Progression has been stable. Notes Drusen, no CNV both eyes (OU) us Kaur Fishman OD OPHTH TOMOGRAPHY Final Result * SCAN - RADIOLOGY/IMAGING (09/06/2024) Anatomical Region Laterality Modality Other us Provider Scanning Final Result * Albumin Creatinine Ratio, Urine (05/04/2024 1:40 PM CDT) Albumin Ur <12.0 mg/L Comment: Interpretive Data No reference range established. Current interpretive data was last revised 2018. Creatinine Ur 157.9 mg/dL [facility] Comment: Interpretive Data No reference range established. Current interpretive data was last revised 2018. Albumin Creatinine Ratio, Ur <8 1 - 29 mg/g [facility] Urine 05/04/2024 1:40 PM CDT 05/04/2024 5:23 PM CDT Kianna Rodríguez CAR UNLOADER HELPER LAB URINE ORDERABLES Final Re sult Performing Organization Address [facility] de Phone Number [facility] Department [place] [address] * (ABNORMAL) Hemoglobin A1c (05/04/2024 1:40 PM CDT) Hgb A1C 5.8(H) 4.0 - 5.6 % Estimated Average Glucose 120 mg/dL [facility] Comment: The ADA recommends reporting an estimated Average Glucose (eAG) with all Hemoglobin A1c results using the equation derived from a study of 507 normal and diabetic adults. Minority populations were underrepresented and children were not included. (Diabetes Care 2020; 43(S1): S66-S76). The eAG is not equivalent to a fasting glucose. Blood 05/04/2024 1:40 PM CDT 05/04/2024 5:23 PM CDT Result Odalys Rodríguez CAR UNLOADER HELPER LAB BLOOD ORDERABLES Final Re sult Performing Organization Address [facility] de Phone Number [facility] Department [place] [address] * (ABNORMAL) Lipid panel (05/04/2024 1:40 PM CDT) Cholesterol 135 30 - 199 mg/dL Comment: Interpretive Data Ages < or = 19 years Acceptable: <170 mg/dL Borderline high: 170-199 mg/dL High: >or= 200 mg/dL Ages > or = 20 years Desirable: <200 mg/dL Borderline high: 200-239 mg/dL High: >or= 240 mg/dL Literature References: 1. Expert Panel on Integrated Guidelines for Cardiovascular Health and Risk Reduction in Children and Adolescents. Pediatrics 2011;128:S213 2. NCEP Expert Panel. Circulation 2004;110:227 Current Interpretive Data was last revised on 2018. Triglycerides 124 <=149 mg/dL [facility] Comment: Interpretive Data Ages < or = 9 years Acceptable: <75 mg/dL Borderline high: 75-99 mg/dL High: >or= 100 mg/dL Ages 10 to 20 years Acceptable: <90 mg/dL Borderline high: 90-129 mg/dL High: >or= 130 mg/dL Ages > or = 20 years Desirable: <150 mg/dL Borderline high: 150-199 mg/dL High: 200-499 mg/dL Very high: >or= 499 mg/dL Literature References: 1. Expert Panel on Integrated Guidelines for Cardiovascular Health and Risk Reduction in Children and Adolescents. Pediatrics 2011;128:S213 2. NCEP Expert Panel. Circulation 2004;110:227 Current Interpretive Data was last revised on 2018. HDL 37(L) >=40 mg/dL [facility] Comment: Interpretive Data Ages < or = 19 years Acceptable: >45 mg/dL Borderline low: 40-45 mg/dL Low: <40 mg/dL Ages > or = 20 years Desirable: >or= 60 mg/dL Low: <40 mg/dL Literature References: 1. Expert Panel on Integrated Guidelines for Cardiovascular Health and Risk Reduction in Children and Adolescents. Pediatrics 2011;128:S213 2. NCEP Expert Panel. Circulation 2004;110:227 Current Interpretive Data was last revised on 2018. LDL, calculated 76 <=129 mg/dL [facility] Comment: Interpretive Data Ages < or = 19 years Acceptable: <110 mg/dL Borderline high: 110-129 mg/dL High: >or= 130 mg/dL Ages > or = 20 years Optimal: <100 mg/dL Near optimal: 100-129 mg/dL Borderline high: 130-159 mg/dL High: >160 mg/dL Calculated using the Colten LDL-C estimating equation. This equation was implemented on 2024. Prior to this date LDL-C was estimated using the Friedewald equation. Literature References: 1. Expert Panel on Integrated Guidelines for Cardiovascular Health and Risk Reduction in Children and Adolescents. Pediatrics 2011;128:S213 2. NCEP Expert Panel. Circulation 2004;110:227 3. Colten Dinh et al. MARAL Cardiol. 2020 November 02;5(5):540-548. doi: 10.1001/jamacardio.2020.0013 Current Interpretive Data was last revised on 2024. Non-HDL Cholesterol 98 mg/dL [facility] Comment: Interpretive Data Ages < or = 19 years Acceptable: <120 mg/dL Borderline high: 120-144 mg/dL High: >145 mg/dL Ages > or = 20 years When triglycerides are >200 mg/dL, Non-HDL cholesterol is a secondary target of therapy with treatment goals that are 30 mg/dL greater than the LDL cholesterol target. Literature References: 1. Expert Panel on Integrated Guidelines for Cardiovascular Health and Risk Reduction in Children and Adolescents. Pediatrics 2011;128:S213 2. NCEP Expert Panel. Circulation 2004;110:227 Current Interpretive Data was last revised on 2018. Chol/HDL ratio 4 [facility] Blood 05/04/2024 1:40 PM CDT 05/04/2024 5:23 PM CDT Kianna Rodríguez NP LAB BLOOD ORDERABLES Final Re sult [facility] Department [place] [address] * COLONOSCOPY (01/07/2023 7:50 AM CDT) Anatomical Region Laterality Modality Other Narrative Procedure Note Duane Good MD - 01/07/2023 7:50 AM CDT [facility] Patient Name: [place] Procedure Date: 01/07/2023 7:50 AM Date of : 1945 Admit Type: Outpatient Age: 77 Gender: Male Attending MD: Duane Good M.D. Room: [facility] ENDOSCOPY ROOM 8 Note Status: Finalized Procedure: Colonoscopy Indications: Screening for colorectal malignant neoplasm, Last colonoscopy 10 years ago Referring MD: Jc Mcconnell M.D. Providers: Duane Good M.D. Medicines: Monitored Anesthesia Care Complications: No immediate complications. Estimated Blood Loss: Estimated blood loss was minimal. Procedure: Pre-Anesthesia Assessment: - Immediately prior to administration ofmedications, the patient was re-assessed for adequacy to receive sedatives. - The risks and benefits of the procedure and the sedation options and risks were discussed with the patient. All questions were answered and informed consent was obtained. The benefits, risks and alternatives of theprocedure and sedation were discussed and informed consentwas obtained. All questions were answered. Please referto the signed informed consent document in the medical record. The scope was passed under direct vision.The [id number] endoscope was introduced through the anus and advanced to the cecum, identified by appendiceal orifice and ileocecal valve. The colonoscopy was somewhat difficult due tosignificant looping. Successful completion of the procedure was aided by applying abdominal pressure. The patient tolerated the procedure well. The quality of thebowel preparation was evaluated using the BBPS (BostonBowel Preparation Scale) with scores of: Right Colon = 2 (minor amount of residual staining, small fragmentsof stool and/or opaque liquid, but mucosa seen well), Transverse Colon = 3 (entire mucosa seen well withno residual staining, small fragments of stool oropaque liquid) and Left Colon = 2 (minor amount ofresidual staining, small fragments of stool and/or opaque liquid, but mucosa seen well). The total BBPS score equals 7. The quality of the bowel preparation was good. The bowel preparation used was GoLYTELY via split dose instruction. The quality of the bowel preparation was good. Findings: The perianal and digital rectal examinations were normal. A 7 mm polyp was found in the cecum. The polyp was Parisclassification Is (protruding, sessile). The polyp was removed with a cold snare. Resection and retrieval were complete. A 7 mm polyp was found in the ascending colon. The polyp was Crissy classification Is (protruding, sessile). The polyp was removed with a cold snare. Resection and retrieval were complete. A 7 mm polyp was found in the transverse colon. The polyp was Crissy classification Is (protruding, sessile). The polyp was removed with a cold snare. Resection and retrieval were complete. A 10 mm polyp was found in the transverse colon. The polyp was Crissy classification Is (protruding, sessile). The polyp was removed with a cold snare. Resection and retrieval were complete. To preventbleeding after the polypectomy, one hemostatic clip was successfully placed. There was no bleeding at the end of the procedure. Many small and large-mouthed diverticula were found in the sigmoidcolon. Internal hemorrhoids were found during retroflexion. The hemorrhoids were Grade I (internal hemorrhoids that do not prolapse). Impression: - One 7 mm polyp in the cecum, removed with a cold snare. Resected and retrieved. - One 7 mm polyp in the ascending colon, removedwith a cold snare. Resected and retrieved. - One 7 mm polyp in the transverse colon, removedwith a cold snare. Resected and retrieved. - One 10 mm polyp in the transverse colon, removed with a cold snare. Resected and retrieved. Clip was placed. - Diverticulosis in the sigmoid colon. - Internal hemorrhoids. Recommendation: - Await pathology results. - Repeat colonoscopy for surveillance based on pathology results. - - A polyp or polyps were removed during your colonoscopy today. After the pathology result ofthe polyp(s) is reviewed, the doctor who performed your colonoscopy will recommend follow-up colonoscopy to you based on current guidelines by gastroenterology societies: > If only small hyperplastic polyps from the rectumor sigmoid were removed, repeat the colonoscopy in 10 years. > If 1 or 2 polyps less than 1 cm in size are adenomas, repeat the colonoscopy in 5 years. > If 3 or more polyps are adenomas, repeat the colonoscopy in 3 years. > If there are 10 or more adenomas, repeat the colonoscopy in 1 year. > If any polyp is 10 mm or greater in size, has villous histology or high grade dysplasia, repeatthe colonoscopy in 3 years. > If a polyp greater than 2 cm was removed with a piecemeal technique, repeat the colonoscopy in 6 months to be certain that there is no residualpolyp. > Sessile serrated polyps are treated like adenomas for surveillance purposes. - Return to referring provider as indicated. - - Contact Information: During normal business hours - Please call theNurse Coordinator: [phone]. After hours, evening, nights, weekends and holidays- Please call the hospital threshing machine operator at and ask for the GI fellow internal communications intern. Electronically signed by Duane Good MD Duane Good M.D. 01/07/2023 8:36:02 AM . Number of Addenda: 0 Note Initiated On: 01/07/2023 7:50 AM Recognized by the [employer] Gastrointestinal [employer] for promoting quality in endoscopy Duane Good MD ENDOSCOPY PROCEDURES Final Result from Last 3 Months or Most Recently Relevant to Health Maintenance Insurance [facility] Address: [facility] [address] [place] [address] [employer] MEDICARE AETNA MEDICARE Advance Directives For more information, please contact: [phone] * Full Code (Latest Code Status on File) Date Activated Date Inactivated Comments 03/28/2024 7:53 PM 04/06/2024 4:56 PM * Full Code Date Activated Date Inactivated Comments 03/21/2024 12:53 PM 03/28/2024 7:53 PM * Full Code Date Activated Date Inactivated Comments 01/07/2023 7:47 AM 01/07/2023 1:15 PM Care Teams Executor Of Estate Relationship Specialty Start Date End Date Bhavna Land MD [address] [facility] [address] [address] PCP - General Sleep Medicine 12/11/20 Balaji Tovar MD PhD [address] [facility] [address] [place] [address] Medical Oncologist/[employer] Medic Medical Oncology 01/25/24 Kianna Rodríguez NP [address] [place] [address] Internal Medicine 01/25/24 Kaur Fishman OD [address] [place] [address] Referring Physician Optometry 09/14/24
--- OUTSIDE RECORDS SUMMARY | 2024-10-12 01:40 | XMS_ITS | Encounter Summary ---
Author Organization [facility] Address [address] [place] [address] Phone Care Team Providers Care Emr Implementation Specialist Name Role Phone Bhavna Land MD Primary Care Provider [phone] Balaji Tovar MD PhD Unavailable [phone] Kianna Rodríguez PHARMACY MANAGER Unavailable [phone] Kaur Fishman OD Unavailable [phone] Encounter Details Date Type Department Care Team (Latest Contact Info) Description 09/11/2024 Orders Only [facility] Scanning, [...] on file Legal Sex Male 9:16 PM DETAIL MANAGER Gender Identity Male 12/20/2019 7:46 PM CDT Sexual Orientation Straight 12/20/2019 7: 46 PM CDT documented as of this encounter Plan of Treatment Scheduled Procedures Name Priority Associated Diagnoses Date/Ti me COLONOSCOPY Screening for colon cancer documented as of this encounter Procedures Procedure Name Priority Date/Time Associated Diagnosis Comments SCAN - RADIOLOGY/IMAGING 09/11/2024 documented in this encounter Results * SCAN - RADIOLOGY/IMAGING (09/11/2024) Anatomical Region Laterality Modality Other us Provider Scanning Final Result documented in this encounter Visit Diagnoses Not on filedocumented in this encounter Care Teams Emr Implementation Specialist Relationship Specialty Start Date End Date Bhavna Land MD [address] [facility] [address] [place] [address] PCP - General Sleep Medicine 12/11/20 Balaji Tovar MD PhD [address] [facility] [address] [place] [address] Medical Oncologist/Wet End Helper Medical Oncology 01/25/24 Kianna Rodríguez NP [address] [address] Internal Medicine 01/25/24 Kaur Fishman OD [address] [address] Referring Physician Optometry 09/14/24 documented as of this encounter
--- OUTSIDE RECORDS SUMMARY | 2024-10-12 01:40 | XMS_ITS | Clinical Summary ---
Author Organization [facility] Address [address] [place] [address] Care Team Providers Care Brim Stretcher Name Role Phone Bhavna Land MD Primary Care Provider [phone] Balaji Tovar MD PhD Unavailable [phone] Kianna Rodríguez LIGHT CLEANER Unavailable [phone] Kaur Fishman OD Unavailable [phone] Allergies Active Allergy Reactions Criticality Noted Date [...] mg by mouth daily 01/05/20 21 Active ymbnzgok-hhr-CY-ly copen-lutein (Complete MV Adult 50 Plus) 0.4 mg-300 mcg- 250 mcg tabletIndications: Vitamin Deficiency Prevention Take 1 tablet by mouth daily 11/05/19 21 Active magnesium aspart,citrate,oxi de 400 mg magnesium capsuleIndications :hypomagnesemia Take 1 tablet by mouth daily Active tamsulosin (FLOMAX) 0.4 mg extended release capsule Take 1 capsule (0.4 mg total) by mouth daily with dinner 04/05/20 Active senna-docusate (PERICOLACE) 8.6-50 mgIndications:cons tipation Take [...] mouth 3 (three) times a day 04/05/20 025 Active fluticasone propionate (FLONASE) 50 mcg/actuation nasal [...] 09/01/2021 Assessment & Plan (09/10/2021 10:31 AM SKIN TANNER): Chronic, not improved with oral antihistamine and intranasal steroid spray. Referral placed to ENT for further evaluation. Assessment & Plan (09/01/2021 1:58 PM SKIN TANNER): Of several months duration. No obvious medication [...] symptoms and refer to pain management at [facility]. Assessment & Plan (01/10/2021 4:41 PM CDT): [...] visit Assessment & Plan (09/10/2021 10:31 AM SKIN TANNER): Chronic, stable, effectively treated with diet and exercise without need for pharmacologic therapy. Recheck A1c today. Goal A1c less than 7. Assessment & Plan (03/11/2021 11:11 AM CDT): Chronic, stable. Recheck labs today. Restart Januvia if A1c greater than 7. Assessment & Plan (12/23/2020 9:23 PM CDT): Well controlled, with last A1c in 2018 of 5.8. We discussed checking A1c today [...] OD Arthritis of carpometacarpal (CMC) joint of hugo duffy thumb 05/10/2019 Overview (05/10/2019): Added automatically from request for surgery [id number] S/P YAG capsulotomy, right 04/26/2019 Assessment & [...] Pseuophakia both eyes (OU)- Surgery performed in [place], [place] around 2009. Uncomplicated. 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 Encounters Date Type Department Care Team Description 09/18/2024 1:00 PM CDT Office Visit [facility] Ophthalmology [address] 2[address] [place] [address] Stefan Beltrán MD AMD (age-related macular degeneration), bilateral (Primary Dx) 09/13/2024 2:35 PM CDT Telemedicine [facility] Oncology [facility] Floor [address] [place] [address] Balaji Tovar MD PhD Sarcoma of left thigh (HCC) (Primary Dx); Mass of left knee 09/13/2024 Orders Only [facility] Oncology [facility] [address] [address] Balaji Tovar MD PhD Sarcoma of left thigh (HCC) (Primary Dx) 09/11/2024 Orders Only [facility] Scanning, Provider 09/11/2024 Telephone [facility] Ophthalmology [address] [facility] [address]th [place] [address] No, Physician 09/07/2024 1:00 PM SKIN TANNER Office Visit [facility] [address] [facility] [address] [place] [address] Kaur Fishman, OD AMD (age-related macular degeneration), bilateral (Primary Dx) 09/07/2024 Orders Only [facility] Hematology [facility] [address] [place] [address] Balaji Tovar MD PhD Sarcoma of left thigh (HCC) (Primary Dx) 09/06/2024 Orders Only [facility] Scanning, Provider 08/28/2024 Orders Only [facility] Oncology [facility] [address] [place] [address] Balaji Tovar MD PhD History of sarcoma (Primary Dx) from Last 3 Months Immunizations Immunization Administration Dates Next Due Influenza, [...] ZOSTER LIVE 01/12/2012 ZOSTER Recombinant 08/04/2018,03/14/2018, 018 Surgical History Surgery Date Site/Laterality Comments SQUAMOUS CELL CARCINOMA EXCISION 07/05/2011 - 07/04/2012 FACE THUMB SURGERY 07/05/2018 - 08/04/2018 Left CATARACT EXTRACTION 07/05/2010 - 07/04/2011 Bilateral cataract COLONOSCOPY THUMB SURGERY 07/05/2018 - 07/04/2019 Left SQUAMOUS CELL CARCINOMA EXCISION face JOINT REPLACEMENT 07/05/2018 - 07/04/2019 Bilateral thumb US ABDOMEN COMPLETE W LIVER DOPPLER (C) 04/13/2022 Right PERCUTANEOUS NEEDLE BIOPSY MUSCLE 02/17/2024 N/A Medical History Medical History Date Comments Type 2 diabetes mellitus (HCC) Macular degeneration Cancer (HCC) 2008 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, thigh Status post radiation therapy 2008 le ft thight ED (erectile dysfunction) Arthritis OA Hyperlipemia MRSA cellulitis 2008 Cataract Mixed conductive and sensori neural hearing loss 1952 Kidney stone Family History Medical History Relation Name Comments Arthritis Father Eatalfonso Heart disease Father Eatalfonso Diabetes Mother Pretty Relation Name Status Comments Father Eathen Mother Pretty Social History Tobacco Use Types Packs/Day Years [...] on file Legal Sex Male 9:16 PM SKIN TANNER Gender Identity Male 12/20/2019 7:46 PM CDT Sexual Orientation Straight 12/20/2019 7: 46 PM CDT Obstetrics History Last Filed Vital Signs Vital Sign Reading Time Taken Comments Blood Pressure 145/78 06/14/2024 8:53 AM SKIN TANNER Pulse 92 06/14/2024 8:53 AM SKIN TANNER Temperature 36.8 C (98.2 F) 06/14/2024 8:53 AM SKIN TANNER Respiratory Rate 20 05/04/2024 1:07 PM CDT Oxygen Saturation 96% 06/14/2024 8:53 AM SKIN TANNER Inhaled Oxygen Concentration - - Weight 87.5 kg (193 lb) 06/14/2024 8:51 AM SKIN TANNER Height 172.7 cm (5' 7.99 ) 06/14/2024 8:51 AM CS T Body Mass Index 29.35 06/14/2024 8:51 AM SKIN TANNER Plan of Treatment Scheduled Procedures Name Priority Associated Diagnoses Date/Ti me COLONOSCOPY Screening for colon cancer Health Maintenance Due Date Last Done Comments Hepatitis B Screening 1963 Colon Cancer Screening-FIT 01/08/2024 01/07/2023 Colon Cancer Screening-FOBT 01/08/2024 01/07/2023 Covid-19 Vaccine (7 2023-2 5 season) 2024 03/31/2023, 04/07/2022, 10/02/2021, Additional history exists Hemoglobin A1C 11/01/2024 05/04/2024, 10/04, 04/28/2023, Additional history exists Albumin Creatinine Ratio, Urine 05/04/2025 05/04/2024, 04/28/2023, 03/16/2022, Additional history exists Depression Screening 05/04/2025 05/04/2024, 05/04/2024, 04/28/2023, Additional history exists Fall Risk Assessment 05/04/2025 05/04/2024, 04/06/2024, 04/28/2023, Additional history exists Foot Exam 05/04/2025 05/04/2024, 04/05, 04/28/2023, Additional history exists Lipid Panel 05/04/2025 05/04/2024, 04/05, 03/16/2022, Additional history exists Well Visit 65+ 05/04/2025 05/04/2024, 04/06, 04/28/2023, Additional history exists eGFR 09/11/2025 09/11/2024, 06/04, 04/06/2024, Additional history exists Dilated Eye Exam 09/18/2025 09/18/2024, 12/2024, 04/15/2023, Additional history exists Colon Cancer Screening-Colonoscopy 01/07/20262022 Colon Cancer Screening-DNA Stool 01/07/2026 01/08/20 Colorectal Cancer Screening 01/07/2026 DTaP/Tdap/Td Vaccine (2 - Td or Tdap) 04/29/2026 04/29/2016 Colon Cancer Screening-CT Colonography 01/08/2028 01/07/2023 Colon Cancer Screening-Sigmoidoscopy 01/08/2028 01/07/2023 Pneumococcal vaccine 65+ Completed 04/14/2017, 04/04 Zoster Vaccine Completed 08/04/2018, 03/05, 03/13/2018, Additional history exists Influenza Vaccine Completed 04/06/2024, , 03/31/2023, Additional history exists Medical Devices Implanted Type Area Concrete Boom Operator Device Identifier Shelf Expiration Date Model / Serial / Lot [employer] Meena Lynch Microvascular 3.5mm Ring Pin Protective Cover Jaw Assembly Latex Free [id number] - [id number] Implanted:Qty: 1 on 03/28/2024 by Lloyd Gay MD at [facility] Other - see comments Left: Leg [employer] Meena [id number] 03/21/2028 [id number] / / [id number] Depuy Mitek [id number] Quickanchor Plus Ethibond 2-0 V-5 Mini [place] Suture - [id number] Implanted:Qty: 1 on 07/27/2018 by Duane Nelson MD at [facility] Left: Thumb Depuy [employer]k 03/04/2023 [id number] / / [id number] Depuy Mitek [id number] Quickanchor Plus Ethibond 2-0 V-5 Mini [place] Suture - [id number] Implanted:Qty: 1 on 07/27/2018 by Duane Nelson MD at [facility] Left: Thumb Depuy M[employer]k 03/04/2023 [id number] / / [id number] Arthrex Inc Ar-8978-Cp Internalbrace Kit Hand Wrist Set Implant Ligament Augmentation - [id number] Implanted:Qty: 1 on 05/31/2019 by Duane Nelson MD at [facility] Right: Wrist [employer] [id number] 04/03/2024 AR-8978- CP / / [id number] Procedures Procedure Name Priority Date/Time Associated Diagnosis [...] - BOTH EYES Routine 09/07/2024 1:00 PM SKIN TANNER AMD (age-related macular degeneration), bilateral SCAN - [...] WBC 4.8 3.8 - 10.8 Thousand/u L [facility] RBC, POC 4.95 4.20 - 5.80 Million/uL [facility] Hgb 14.8 13.2 - 17.1 g/dL [facility] Hct 45.7 38.5 - 50.0 % [facility] MCV 92.3 80.0 - 100.0 fL [facility] MCH 29.9 27.0 - 33.0 pg [facility] MCHC 32.4 32.0 - 36.0 g/dL [facility] Comment: For adults, a slight decrease in the calculated MCHC value (in the range of 30 to 32 g/dL) is most likely not clinically significant; however, it should be interpreted with caution in correlation with other red cell parameters and the patient's clinical condition. Rdw 14.2 11.0 - 15.0 % [facility] Platelets 173 140 - 400 Thousand/u L [facility] MPV 10.9 7.5 - 12.5 fL [facility] Neutrophils, abs 2,789 1,500 - 7,800 cells/uL [facility] Lymphocytes, abs 1,162 850 - 3,900 cells/uL [facility] Monocyte abs 619 200 - 950 cells/uL [facility] Eosinophils, abs 202 15 - 500 cells/uL [employer] Basophils, abs 29 0 - 200 cells/uL [facility] Neutrophils 58.1 % [employer] Lymphocyte pct 24.2 % [employer] Monocytes 12.9 % [employer] Eosinophils 4.2 % [facility] Basophils 0.6 % [employer] Blood 09/11/2024 9:00 AM CDT 09/11/2024 9:00 AM CDT Narrative [facility] - 09/11/2024 6:24 PM CDT FASTING:YES FASTING: YES us Balaji Tovar MD PhD LAB BLOOD ORDERABLE S Final Result [facility] [address] [place] [address] * (ABNORMAL) Comprehensive metabolic panel (09/11/2024 9:00 AM CDT) Pathologist [facility] Glucose 168(H) 65 - 99 mg/dL Global Sugar [facility] Comment: Fasting reference interval For someone without known diabetes, a glucose value >125 mg/dL indicates that they may have diabetes and this should be confirmed with a follow-up test. BUN 15 7 - 25 mg/dL [facility] Lock[facility] Creatinine 1.19 0.70 - 1.28 mg/dL Yoana Lockhart eGFR 62 > OR = 60 mL/min/1.7 3m2 Yoana Lockhart BUN/creat ratio SEE NOTE: 6 - 22 (calc) Yoana Lockhart Comment: Not Reported: BUN and Creatinine are within reference range. Sodium 139 135 - 146 mmol/L Yoana Lockhart Potassium, pl 4.4 3.5 - 5.3 mmol/L Yoana Lockhart Chloride 106 98 - 110 mmol/L Yoana Lockhart CO2 27 20 - 32 mmol/L Yoaan Lockhart Calcium 8.5(L) 8.6 - 10.3 mg/dL Yoana Lockhart Protein, sr 6.3 6.1 - 8.1 g/dL Yoana Lockhart Albumin 4.2 3.6 - 5.1 g/dL Yoana Lockhart GLOBULIN 2.1 1.9 - 3.7 g/dL (calc) Yoana Lockhart Alb/glob ratio 2.0 1.0 - 2.5 (calc) Yoana Lockhart Bilirubin, total 0.4 0.2 - 1.2 mg/dL Yoana Lockhart Alk phos 47 35 - 144 U/L Yoana Lockhart AST 17 10 - 35 U/L Yoana Lockhart ALT (SGPT) 14 9 - 46 U/L Yoana Lockhart Blood 09/11/2024 9:00 AM CDT 09/11/2024 9:00 AM CDT Narrative [facility] - 09/11/2024 6:24 PM CDT FASTING:YES FASTING: YES Balaji Tovar MD PhD LAB BLOOD ORDERABLE S Final Result YOANA Lockhart [address] [place] [address] * SCAN - RADIOLOGY/IMAGING (09/11/2024) Anatomical Region Laterality Modality Other us Provider Scanning Final Result * OCT, Retina - OU - Both Eyes (09/07/2024 1:00 PM SKIN TANNER) Anatomical Region Laterality Modality Head Optical Coherenc [...] RADIOLOGY/IMAGING (09/06/2024) Anatomical Region Laterality Modality Other Provider Scanning Final Result * Albumin Creatinine Ratio, Urine (05/04/2024 1:40 PM CDT) Albumin Ur <12.0 mg/L Comment: Interpretive Data No reference range established. Current interpretive data was last revised 2018. Creatinine Ur 157.9 mg/dL [facility] Comment: Interpretive Data No reference range established. Current interpretive data was last revised 2018. Albumin Creatinine Ratio, Ur <8 1 - 29 mg/g [facility] Urine 05/04/2024 1:40 PM CDT 05/04/2024 5:23 PM CDT Kianna Rodríguez LIGHT CLEANER LAB URINE ORDERABLES Final Re sult [facility] [place] [address] * (ABNORMAL) Hemoglobin A1c (05/04/2024 1:40 PM CDT) Hgb A1C 5.8(H) 4.0 - 5.6 % Estimated Average Glucose 120 mg/dL [facility] Comment: The ADA recommends reporting an estimated Average Glucose (eAG) with all Hemoglobin A1c results using the equation derived from a study of 507 normal and diabetic adults. Minority populations were underrepresented and children were not included. (Diabetes Care 2020; 43(S1): S66-S76). The eAG is not equivalent to a fasting glucose. Blood 05/04/2024 1:40 PM CDT 05/04/2024 5:23 PM CDT us Kianna Rodríguez NP LAB BLOOD ORDERABLES Final Re sult [facility] [place] [address] * (ABNORMAL) Lipid panel (05/04/2024 1:40 PM [...] revised on 2018. Triglycerides 124 <=149 mg/dL [facility] Comment: Interpretive Data Ages < or = [...] revised on 2018. HDL 37(L) >=40 mg/dL [facility] Comment: Interpretive Data Ages < or = [...] on 2018. LDL, calculated 76 <=129 mg/dL [facility] Comment: Interpretive Data Ages < or = [...] 3. Colten Dinh et al. MARAL Cardiol. 2019November 02;5(5):540-548. doi: 10.1001/jamacardio.2020.0013 Current Interpretive Data was last revised on 2024. Non-HDL Cholesterol 98 mg/dL [facility] Comment: Interpretive Data Ages < or = [...] last revised on 2018. Chol/HDL ratio 4 [facility] Blood 05/04/2024 1:40 PM CDT 05/04/2024 5:23 PM CDT us Kianna Bakerclive LIGHT CLEANER LAB BLOOD ORDERABLES Final Re sult [facility] [place] [address] * COLONOSCOPY (01/07/2023 7:50 AM CDT) Anatomical Region Laterality Modality Other Narrative Procedure Note Duane Good MD - 01/07/2023 7:50 AM CDT [facility] ENDOSCOPY [facility] Patient Name: [place] Procedure Date: 01/07/2023 7:50 AM Date of : 1945 Admit Type: Outpatient Age: 77 Gender: Male Attending MD: Duane Good M.D. Room: [facility] ENDOSCOPY ROOM 8 Note Status: Finalized Procedure: Colonoscopy Indications: Screening for colorectal malignant neoplasm, Last colonoscopy 10 years ago Referring MD: Jc Mcconenll M.D. Providers: Duane Good M.D. Medicines: Monitored [...] The scope was passed under direct vision.The CF [id number] endoscope was introduced through the anus and [...] business hours - Please call theNurse Coordinator: [phone]. After hours, evening, nights, weekends and holidays- Please call the hospital ball fringe machine operator at and ask for the GI fellow commercial front load operator. Electronically signed by Duane Good MD Duane Good M.D. 01/07/2023 8:36:02 AM . Number of Addenda: 0 Note Initiated On: 01/07/2023 7:50 AM Recognized by the [employer] for promoting quality in endoscopy Duane Good MD ENDOSCOPY PROCEDURES Final Result from Last 3 Months or Most Recently Relevant to Health Maintenance Insurance T MEDICARE AET MEDICARE [facility] MEDICARE Advance Directives For more information, please contact: [phone] * Full Code (Latest Code Status on File) Date Activated Date Inactivated Comments 03/28/2024 7:53 PM 04/06/2024 4:56 PM * Full Code Date Activated Date Inactivated Comments 03/21/2024 12:53 PM 03/28/2024 7:53 PM * Full Code Date Activated Date Inactivated Comments 01/07/2023 7:47 AM 01/07/2023 1:15 PM Care Teams Brim Stretcher Relationship Specialty Start Date End Date Bhavna Land MD [address] [facility] [address] [place] [address] PCP - General Sleep Medicine 12/11/20 Balaji Tovar MD PhD [address] [facility] [address] [place] [address] Medical Oncologist/Air Brake Adjuster Medical Oncology 01/25/24 Kianna Rodríguez NP [address] [facility] [place] [address] Internal Medicine 01/25/24 Kaur Fishman OD [address] [address] Referring Physician Optometry 09/14/24
--- OUTSIDE RECORDS SUMMARY | 2024-10-12 01:40 | XMS_ITS ---
Author Organization [facility] Address [address] [place] [address] Care Team Providers Care Geographic Information System Surveyor Name Role Phone Bhavna Land MD Primary Care Provider [phone] Balaji Tovar MD PhD Unavailable [phone] Kianna Rodríguez SIDING MECHANIC Unavailable [phone] Kaur Fishman OD Unavailable [phone] Active Problems Problem Noted Date Diagnosed Date [...] 09/01/2021 Assessment & Plan (09/10/2021 10:31 AM FORESTRY FARM LABORER): Chronic, not improved with oral antihistamine and intranasal steroid spray. Referral placed to ENT for further evaluation. Assessment & Plan (09/01/2021 1:58 PM FORESTRY FARM LABORER): Of several months duration. No obvious medication [...] symptoms and refer to pain management at [facility]. Assessment & Plan (01/10/2021 4:41 PM CDT): [...] visit Assessment & Plan (09/10/2021 10:31 AM FORESTRY FARM LABORER): Chronic, stable, effectively treated with diet and [...] (05/10/2019): Added automatically from request for surgery [id number] S/P YAG capsulotomy, right 04/26/2019 Assessment & [...] fluid Monitor Photo today PCO (posterior capsular opacification)zeb 11/23/2018 Assessment & Plan (03/21/2019 10:51 AM CDT): Pseuophakia both eyes (OU)- Surgery performed in [place], [place] around 2009. Uncomplicated. 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 Past Treatment and Therapy Plans No past plan information found. Lifetime Dose Tracking * Chemical Lifetime Dose Automatic Entry Manual Entr y Fluoro Time 0.167 minutes 0.167 minutes 0 minutes Air kerma at the reference point (Ka,r) 0.001 mGy 0 .001 mGy 0 mGy DLP 2,980 mGycm 2,980 mGycm 0 mGycm Resolved Problems Problem Noted Date Diagnosed Date [...]
[2024-10-12 01:41] VITALS: BP 145/77; PULSE 94; RESP 20; TEMP 36.5; O2SAT 100
[2024-10-12 04:00] VITALS: BP 131/65; PULSE 83; RESP 18; O2SAT 100
--- NOTE | 2024-10-12 04:22 | ED.GENADULT ---
HPI - General Adult General Chief complaint: Wound/Laceration Stated complaint: cyst to back Time Seen by Provider: 10/12/24 03:27 History of Present Illness HPI narrative: Patient 79-year-old gentleman who presents emergency department chief complaint of abscess to the back. Patient reports that he has had a cyst before in his back that has been drained previously the patient states that he called Dermatology and is scheduled for an appointment later this month patient states that today and noticed that it was red and also had some drainage from the area patient reports no fever Related Data Allergies Allergy/AdvReac Type Severity Reaction Status Date / Time lisinopril AdvReac Mild cough Verified 10/12/24 01:45 Review of Systems Review of Systems: A 10 system review of systems was completed on the patient and is negative except for what is stated in the HPI. Nursing and ancillary documentation was reviewed. [facility] Family History Family History Mother Hypertension Family history of diabetes mellitus in first degree relative Father Family history of diabetes mellitus in first degree relative Family history of coronary artery disease Other Diabetes mellitus Family history of cardiovascular disease Social History Social History Smoking status: Never smoker Second hand tobacco smoke exposure: No Alcohol intake: current Exam Narrative: GENERAL: Well-appearing, well-nourished, and in no acute distress. HEAD: Normocephalic, atraumatic. EYES: PERRLA and EOMI. ENT: Nares clear, no rhinorrhea or epistaxis. Mucous membranes moist. NECK: Supple. CHEST: Clear to auscultation. No respiratory distress. HEART: Regular rate and rhythm. No murmur heard. Normal peripheral pulses. ABDOMEN: Soft, nontender, nondistended, normal active bowel sounds. EXTREMITIES: Normal range of motion. No edema. SKIN: Warm, dry, no rash. There is a raised red area in the back between the shoulder blades there appears to be some fluctuance and there is some mild purulent material draining from the area NEURO: No focal deficits. Alert and oriented x3. PSYCH: Normal mood and affect. Course Vital Signs Vital signs: Vital Signs Temperature 36.5 C 10/12/24 01:41 Pulse Rate 94 10/12/24 01:41 Respiratory Rate 20 10/12/24 01:41 Blood Pressure 145/77 H 10/12/24 01:41 Pulse Oximetry 100 10/12/24 01:41 Oxygen Delivery Room Air 10/12/24 01:41 Temperature 36.5 C 10/12/24 01:41 Pulse Rate 83 10/12/24 04:00 Respiratory Rate 18 10/12/24 04:00 Blood Pressure 131/65 10/12/24 04:00 Pulse Oximetry 100 10/12/24 04:00 Oxygen Delivery Room Air 10/12/24 01:41 Procedures Abscess I/D back: Date of Incision: 10/12/24 Time of Incision: 04:23 Sedation/analgesia: none Local Anesthetic: lidocaine 1% Amount of anesthesia used (mL): 5 Technique: incised with #11 blade Amount of fluid expressed (mL): 5 Irrigation: No Packing used?: none I&D Results: Pus and Blood Medical Decision Making MDM Narrative Medical decision making narrative: The area was opened up there was not a large enough cavity to pack but material was able to be expressed from the area The patient was started on Keflex and doxy patient should follow up with Dermatology Vital Signs Vital Signs: Vital Signs Temperature 36.5 C 10/12/24 01:41 Pulse Rate 94 10/12/24 01:41 Respiratory Rate 20 10/12/24 01:41 Blood Pressure 145/77 H 10/12/24 01:41 Pulse Oximetry 100 10/12/24 01:41 Oxygen Delivery Room Air 10/12/24 01:41 Temperature 36.5 C 10/12/24 01:41 Pulse Rate 83 10/12/24 04:00 Respiratory Rate 18 10/12/24 04:00 Blood Pressure 131/65 10/12/24 04:00 Pulse Oximetry 100 10/12/24 04:00 Oxygen Delivery Room Air 10/12/24 01:41 Discharge Plan Discharge Clinical Impression: Abscess of back Patient Disposition: Home Condition: Stable Instructions: Antibiotic Form, Abscess (ED), Abscess Incision and Drainage (DC) Additional Instructions: Please change the dressing twice daily if you notice increased redness develop a high fever please return to the emergency department for re-evaluation Patient Language: Macedonian Prescriptions: New cephalexin 500 mg capsule 500 mg PO Q6H 7 Days Qty: 28 0RF doxycycline hyclate 100 mg tablet 100 mg PO BID Qty: 14 0RF No Action simvastatin 40 mg tablet 40 mg PO DAILY Qty: 90 2RF Januvia 100 mg tablet 100 mg PO DAILY Qty: 90 2RF testosterone [AndroGel] 20.25 mg/1.25 gram (1.62 %) gel in metered-dose pump 2 pump TOPICAL DAILY 90 Days Qty: 225 1RF Rx Instructions: apply 1 pump amount over max area of EACH upper arm and shoulder (2 pumps total) Follow-up/Referrals: UNKNOWN,DOCTOR [Primary Care Provider] -
--- NOTE | 2024-10-12 04:39 | PC.NURSE ---
Per Md keith he verbally orders for a pressure dressing. Pressure dressing applied at this time.
[2024-10-12] MEDS: CEPHALEXIN 500 MG CAPSULE PO (04:40)
[2024-10-12] MEDS: DOXYCYCLINE HYCLATE 100 MG TABLET PO (04:40)
--- OUTSIDE RECORDS SUMMARY | 2024-10-12 04:43 | XMS_ITS ---
Author Organization [facility] al Address [address] [place] [address] Care Team Providers Care Dynamic Balancer Name Role Phone Bhavna Land MD Primary Care Provider [phone] Balaji Tovar MD PhD Unavailable [phone] Kianna Rodríguez CHRONOMETER ADJUSTER Unavailable [phone] Kaur Fishman OD Unavailable Active Problems Problem Noted Date Diagnosed Date [...] 09/01/2021 Assessment & Plan (09/10/2021 10:31 AM MANAGER LAN): Chronic, not improved with oral antihistamine and intranasal steroid spray. Referral placed to ENT for further evaluation. Assessment & Plan (09/01/2021 1:58 PM MANAGER LAN): Of several months duration. No obvious medication [...] symptoms and refer to pain management at [facility]. Assessment & Plan (01/10/2021 4:41 PM CDT): [...] visit Assessment & Plan (09/10/2021 10:31 AM MANAGER LAN): Chronic, stable, effectively treated with diet and [...] (05/10/2019): Added automatically from request for surgery [id number] S/P YAG capsulotomy, right 04/26/2019 Assessment & [...] Pseuophakia both eyes (OU)- Surgery performed in [place], [place] around 2009. Uncomplicated. 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
--- OUTSIDE RECORDS SUMMARY | 2024-10-12 04:43 | XMS_ITS | Referral Summary ---
Author Organization [facility] al Address [address] [place] [address] Care Team Providers Care Parts Analyst Name Role Phone Bhavna Land MD Primary Care Provider [phone] Balaji Tovar MD PhD Unavailable [phone] Kianna Rodríguez CELL STRIPPER Unavailable [phone] Kaur Fishman OD Unavailable [phone] Encounters Date Type Department Care Team Description 09/18/2024 1:00 PM CDT Office Visit [facility] Ophthalmology [address] [facility] 2nd [address] [place] [address] Stefan Beltrán MD AMD (age-related macular degeneration), bilateral (Primary Dx) 09/13/[address] [facility] Oncology [address] [place] [address] Floor 6 [place] [address] Balaji Tovar MD PhD Sarcoma of left thigh (HCC) (Primary Dx) 09/13/2024 2:[address] [facility] Oncology [address] [place] [address] 6 [place] [address] Balaji Tovar MD PhD Sarcoma of left thigh (HCC) (Primary Dx); Mass of left knee 09/11/2024 Orders Only [facility] Scanning, Provider 09/11/[address] [facility] Ophthalmology [address] [facility] [address]th [place] [address] No, Physician 09/07/[address] [facility] Hematology [address] [facility] [address] 6 [place] [address] Balaji Tovar MD PhD Sarcoma of left thigh (HCC) (Primary Dx) 09/07/2024 1:00 PM SKATING CARHOP Office Visit [facility] [address] [facility] [address] [place] [address] Kaur Fishman, OD AMD (age-related macular degeneration), bilateral (Primary Dx) 09/06/2024 Orders Only [facility] Scanning, Provider 08/28/[address] [facility] Oncology [address] [facility] Floor 6 [place] [address] Balaji Tovar MD PhD History [...] mg by mouth daily 01/05/20 21 Active wekndlru-sar-KW-ly copen-lutein (Complete MV Adult 50 Plus) 0.4 [...] 09/01/2021 Assessment & Plan (09/10/2021 10:31 AM SKATING CARHOP): Chronic, not improved with oral antihistamine and intranasal steroid spray. Referral placed to ENT for further evaluation. Assessment & Plan (09/01/2021 1:58 PM SKATING CARHOP): Of several months duration. No obvious medication [...] symptoms and refer to pain management at [facility]. Assessment & Plan (01/10/2021 4:41 PM [...] visit Assessment & Plan (09/10/2021 10:31 AM SKATING CARHOP): Chronic, stable, effectively treated with diet and [...] (05/10/2019): Added automatically from request for surgery [id number] S/P YAG capsulotomy, right 04/26/2019 Assessment & [...] Pseuophakia both eyes (OU)- Surgery performed in [place], [place] around 2009. Uncomplicated. Visually significant PCO [...] (06/21/2018): Added automatically from request for surgery [id number] Sarcoma of left thigh 03/14/2018 Osteoarthritis of [...] on file Legal Sex Male 9:16 PM SKATING CARHOP Gender Identity Male 12/20/2019 7:46 PM CDT Sexual Orientation Straight 12/20/2019 7: 46 PM CDT Last Filed Vital Signs Vital Sign Reading Time Taken Comments Blood Pressure 145/78 06/14/2024 8:53 AM SKATING CARHOP Pulse 92 06/14/2024 8:53 AM SKATING CARHOP Temperature 36.8 C (98.2 F) 06/14/2024 8:53 AM SKATING CARHOP Respiratory Rate 20 05/04/2024 1:07 PM CDT Oxygen Saturation 96% 06/14/2024 8:53 AM SKATING CARHOP Inhaled Oxygen Concentration - - Weight 87.5 kg (193 lb) 06/14/2024 8:51 AM SKATING CARHOP Height 172.7 cm (5' 7.99 ) 06/14/2024 8:51 AM CS T Body Mass Index 29.35 06/14/2024 8:51 AM SKATING CARHOP Plan of Treatment Scheduled Procedures Name Priority Associated Diagnoses Date/Ti me COLONOSCOPY Screening for colon cancer Medical Devices Implanted Type Area Print Inspector Device Identifier Shelf Expiration Date Model / Serial / Lot Synovis ITYZ [place] Microvascular 3.5mm Ring Pin Protective Cover Jaw Assembly Latex Free [id number] - [id number] Implanted:Qty: 1 on 03/28/2024 by Lloyd Gay MD at [facility] Other - see comments Left: Leg Synovis DocuSpeak Allian [id number] 03/21/2028 [id number] / / [id number] Depuy Mitek [id number] Quickanchor Plus Ethibond 2-0 V-5 Mini [place] Suture - [id number] Implanted:Qty: 1 on 07/27/2018 by Duane Nelson MD at [facility] Left: Thumb Depuy Mitek 03/04/[id number] / / [id number] Depuy Mitek [id number] Quickanchor Plus Ethibond 2-0 V-5 Mini [place] Suture - [id number] Implanted:Qty: 1 on 07/27/2018 by Duane Nelson MD at [facility] Left: Thumb Depuy Mitek 03/04/2023 [id number] / / [id number] Ar[employer]rex [employer] Ar-8978-Cp Internalbrace Kit Hand Wrist Set Implant Ligament Augmentation - [id number] Implanted:Qty: 1 on 05/31/2019 by Duane Nelson MD at [facility] Right: Wrist [employer] Inc [id number] 04/03/2024 AR-8978- CP / / [id number] Procedures Procedure Name Priority Date/Time Associated Diagnosis [...] - BOTH EYES Routine 09/07/2024 1:00 PM SKATING CARHOP AMD (age-related macular degeneration), bilateral SCAN - [...] WBC 4.8 3.8 - 10.8 Thousand/u L [facility] RBC, POC 4.95 4.20 - 5.80 Million/uL [facility] Hgb 14.8 13.2 - 17.1 g/dL [facility] Hct 45.7 38.5 - 50.0 % [facility] MCV 92.3 80.0 - 100.0 fL [facility] MCH 29.9 27.0 - 33.0 pg [facility] MCHC 32.4 32.0 - 36.0 g/dL [facility] Comment: For adults, a slight decrease in the calculated MCHC value (in the range of 30 to 32 g/dL) is most likely not clinically significant; however, it should be interpreted with caution in correlation with other red cell parameters and the patient's clinical condition. Rdw 14.2 11.0 - 15.0 % [facility] Platelets 173 140 - 400 Thousand/u L [facility] MPV 10.9 7.5 - 12.5 fL [facility] Neutrophils, abs 2,789 1,500 - 7,800 cells/uL [facility] Lymphocytes, abs 1,162 850 - 3,900 cells/uL [facility] Monocyte abs 619 200 - 950 cells/uL [facility] Eosinophils, abs 202 15 - 500 cells/uL [facility] Basophils, abs 29 0 - 200 cells/uL [facility] Neutrophils 58.1 % [facility] Lymphocyte pct 24.2 % [facility] Monocytes 12.9 % [facility] Eosinophils 4.2 % [facility] Basophils 0.6 % [facility] Blood 09/11/2024 9:00 AM CDT 09/11/2024 9:00 AM CDT Narrative [facility] - 09/11/2024 6:24 PM CDT FASTING:YES FASTING: YES us Balaji Tovar MD PhD LAB BLOOD ORDERABLE S Final Result [facility] [address] [place] [address] * (ABNORMAL) Comprehensive metabolic panel (09/11/2024 9:00 AM CDT) Glucose 168(H) 65 - 99 mg/dL [facility] Comment: Fasting reference interval For someone without known diabetes, a glucose value >125 mg/dL indicates that they may have diabetes and this should be confirmed with a follow-up test. BUN 15 7 - 25 mg/dL [facility] Creatinine 1.19 0.70 - 1.28 mg/dL [facility] eGFR 62 > OR = 60 mL/min/1.7 3m2 [facility] BUN/creat ratio SEE NOTE: 6 - 22 (calc) [facility] Comment: Not Reported: BUN and Creatinine are within reference range. Sodium 139 135 - 146 mmol/L [facility] Potassium, pl 4.4 3.5 - 5.3 mmol/L [facility] Chloride 106 98 - 110 mmol/L [facility] CO2 27 20 - 32 mmol/L [facility] Calcium 8.5(L) 8.6 - 10.3 mg/dL [facility] Protein, sr 6.3 6.1 - 8.1 g/dL [facility] Albumin 4.2 3.6 - 5.1 g/dL [facility] GLOBULIN 2.1 1.9 - 3.7 g/dL (calc) [facility] Alb/glob ratio 2.0 1.0 - 2.5 (calc) [facility] Bilirubin, total 0.4 0.2 - 1.2 mg/dL [facility] Alk phos 47 35 - 144 U/L [...] S Final Result [facility] [address] [place] [address] * SCAN - RADIOLOGY/IMAGING (09/11/2024) Anatomical Region Laterality Modality Other us Provider Scanning Final Result * OCT, Retina - OU - Both Eyes (09/07/2024 1:00 PM SKATING CARHOP) Anatomical Region Laterality Modality Head [facility] Coherenc [...] 2018. Creatinine Ur 157.9 mg/dL [facility] Comment: Interpretive Data No reference range established. Current interpretive data was last revised 2018. Albumin Creatinine Ratio, Ur <8 1 - 29 mg/g [facility] Urine 05/04/2024 1:40 PM CDT 05/04/2024 5:23 PM CDT Kianna Rodríguez CELL STRIPPER LAB URINE ORDERABLES Final Re sult Performing Organization Address [facility] de Phone Number [facility] [place] [address] * (ABNORMAL) Hemoglobin A1c (05/04/2024 1:40 PM CDT) Hgb A1C 5.8(H) 4.0 - 5.6 % Estimated Average Glucose 120 mg/dL [facility] Comment: The ADA recommends reporting an estimated Average Glucose (eAG) with all Hemoglobin A1c results using the equation derived from a study of 507 normal and diabetic adults. Minority populations were underrepresented and children were not included. (Diabetes Care 2020; 43(S1): S66-S76). The eAG is not equivalent to a fasting glucose. Blood 05/04/2024 1:40 PM CDT 05/04/2024 5:23 PM CDT Result Odalys Rodríguez CELL STRIPPER LAB BLOOD ORDERABLES Final Re sult Performing Organization Address [facility] de Phone Number [facility] [place] [address] * (ABNORMAL) Lipid panel (05/04/2024 1:40 PM [...] revised on 2018. Triglycerides 124 <=149 mg/dL [facility] Comment: Interpretive Data Ages < or [...] revised on 2018. HDL 37(L) >=40 mg/dL [facility] Comment: Interpretive Data Ages < or [...] on 2018. LDL, calculated 76 <=129 mg/dL [facility] Comment: Interpretive Data Ages < or [...] 2024. Non-HDL Cholesterol 98 mg/dL [facility] Comment: Interpretive Data Ages < or [...] on 2018. Chol/HDL ratio 4 [facility] Blood 05/04/2024 1:40 PM CDT 05/04/2024 5:23 PM CDT Kianna Rodríguez NP LAB BLOOD ORDERABLES Final Re sult [facility] Department [place] [address] * COLONOSCOPY (01/07/2023 7:50 AM CDT) Anatomical Region Laterality Modality Other Narrative Procedure Note Duane Good MD - 01/07/2023 7:50 AM CDT GI ENDOSCOPY [facility] Patient Name: [place] Procedure Date: 01/07/2023 7:50 AM Date of : 1945 Admit Type: Outpatient Age: 77 Gender: Male Attending MD: Duane Good M.D. Room: [facility] ENDOSCOPY ROOM 8 Note Status: [...] The scope was passed under direct vision.The [id number] endoscope was introduced through the anus [...] business hours - Please call theNurse Coordinator: [phone]. After hours, evening, nights, weekends and holidays- Please call the hospital foundation drill operator helper at and ask for the GI fellow oracle adf consultant. Electronically signed by Duane Good MD Duane Good M.D. 01/07/2023 8:36:02 AM . Number of Addenda: 0 Note Initiated On: 01/07/2023 7:50 AM Recognized by the [employer] for promoting quality in endoscopy Duane Good MD ENDOSCOPY PROCEDURES Final Result from Last 3 Months or Most Recently Relevant to Health Maintenance Insurance [facility] MEDICARE AETNA MEDICARE AETNA MEDICARE Advance Directives For more information, please contact: [phone] * Full Code (Latest Code Status on File) Date Activated Date Inactivated Comments 03/28/2024 7:53 PM 04/06/2024 4:56 PM * Full Code Date Activated Date Inactivated Comments 03/21/2024 12:53 PM 03/28/2024 7:53 PM * Full Code Date Activated Date Inactivated Comments 01/07/2023 7:47 AM 01/07/2023 1:15 PM Care Teams Parts Analyst Relationship Specialty Start Date End Date Bhavna Land MD [address] [facility] [address] [address] PCP - General Sleep Medicine 12/11/20 Balaji Tovar MD PhD [address] [facility] [address] [place] [address] Medical Oncologist/Deadener Medical Oncology 01/25/24 Kianna Rodríguez NP [address] [place] [address] Internal Medicine 01/25/24 Kaur Fishman OD [address] [place] [address] Referring Physician Optometry 09/14/24
--- OUTSIDE RECORDS SUMMARY | 2024-10-12 04:43 | XMS_ITS | Clinical Summary ---
Author Organization [facility] Address [address] [place] [address] Care Team Providers Care Welder 2Nd Shift Name Role Phone Parker Reeves MD Primary [...] to complete this topic Insurance MED REPLACE [facility] MEDICARE [place] [id number] MED REPLACE [facility] MEDICARE Care Teams Welder 2Nd Shift Relationship Specialty Start Date End Date Parker Reeves MD PCP - General INTERNAL MEDICINE 01/02/19
--- OUTSIDE RECORDS SUMMARY | 2024-10-12 04:43 | XMS_ITS | Clinical Summary ---
Author Organization [facility] Address [address] Aguayo: Epic Prelude ADT JORGE A SPICER [address] Care Team Providers Care Motor Coach Tour Operator Name Role Phone Unavailable Primary Care Provider [...] 2:15 PM CDT Ancillary Procedure [facility] [address] [place] [address] Balaji Tovar MD 09/09/2024 External Device Data ST[facility] ABSTRACTION Provider, Abstract 09/08/2024 External Device Data [facility] ABSTRACTION Provider, Abstract 09/06/2024 9:00 AM LEAD ATG DEVELOPER Ancillary Procedure [facility] [place] [address] [place] [address] Balaji Tovar MD Mass of knee, left [...] on file Legal Sex Male 7:57 AM LEAD ATG DEVELOPER Gender Identity Not on file Sexual Orientation [...] PELVIS W CONT Routine 09/06/2024 9:17 AM LEAD ATG DEVELOPER Mass of knee, left Endotheliosarcoma (CMS/HCC) POC CREATININE Routine 09/06/2024 9:04 AM LEAD ATG DEVELOPER Mass of knee, left from Last 3 [...] ABDOMEN PELVIS W CONT (09/06/2024 9:17 AM LEAD ATG DEVELOPER) Anatomical Region Laterality Modality Chest Computed Tomogra phy 09/06/2024 9:05 AM LEAD ATG DEVELOPER Addenda Addendum by Mulugeta Todd MD on 09/06/2024 12:16 PM LEAD ATG DEVELOPER Findings communicated to Dr. Tovar's office at the completion of the exam 09/06/2024 12:07pm by Diane ruiz with [employer] she will pass along to MD Ng 09/06/2024 11:00 AM LEAD ATG DEVELOPER IMAGING STUDIES: CT CHEST ABDOMEN PELVIS W [...] Final * POC CREATININE (09/06/2024 9:04 AM LEAD ATG DEVELOPER) CREATININE POC 1.20 0.60 - 1.30 mg/dL 09/06/2024 9:04 AM LEAD ATG DEVELOPER [employer] [facility] Comment:The GFR result is no t clinically significant on patients <18 or >70 years of age. GFR, >60 mL/min/1.7 3 sq meter 09/06/2024 9:04 AM LEAD ATG DEVELOPER [employer] [facility] GFR POC 58 mL/min/1.7 3 sq meter 09/06/2024 9:04 AM [email or web address] [facility] Comment: eGFR has not been validated for [...] GFR result. Blood, whole 09/06/2024 9:04 AM LEAD ATG DEVELOPER 09/06/2024 9:06 AM LEAD ATG DEVELOPER us Balaji Tovar MD POINT OF CARE TESTING F inal Result [facility]# [id number] [address] [place] [address] from Last 3 Months Insurance [facility]
--- OUTSIDE RECORDS SUMMARY | 2024-10-12 04:43 | XMS_ITS | Clinical Summary ---
Author Organization [facility] Address [address] [place] [address] Care Team Providers Care Coal Chemist Name Role Phone Bhavna Land MD Primary Care Provider [phone] Balaji Tovar MD PhD Unavailable [phone] Kianna Rodríguez RN DIALYSIS Unavailable [phone] Kaur Fishman OD Unavailable [phone] Allergies Active Allergy Reactions Criticality Noted [...] mg by mouth daily 01/05/20 21 Active mmuamqte-txp-BV-ly copen-lutein (Complete MV Adult 50 Plus) 0.4 [...] 09/01/2021 Assessment & Plan (09/10/2021 10:31 AM EXPORT AGENT): Chronic, not improved with oral antihistamine and intranasal steroid spray. Referral placed to ENT for further evaluation. Assessment & Plan (09/01/2021 1:58 PM EXPORT AGENT): Of several months duration. No obvious medication [...] symptoms and refer to pain management at [facility]. 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 Uncomplicated. Visually significant PCO [...] (06/21/2018): Added automatically from request for surgery [id number] Sarcoma of left thigh 03/14/2018 Osteoarthritis of [...] Description 09/18/2024 1:00 PM CDT Office Visit [facility] Ophthalmology [address] [facility] 2nd [address] [place] [address] Stefan Beltrán MD AMD (age-related macular degeneration), bilateral (Primary Dx) 09/13/2024 2:35 PM CDT Telemedicine [facility] Oncology [facility] Floor [address] [place] [address] Balaji Tovar MD PhD Sarcoma of left thigh (HCC) (Primary Dx); Mass of left knee 09/13/2024 Orders Only [facility] Oncology [facility] [address] [address] Balaji Tovar MD PhD Sarcoma of left thigh (HCC) (Primary Dx) 09/11/2024 Orders Only [facility] Scanning, Provider 09/11/2024 Telephone [facility] Ophthalmology [address] [facility] 6th [place] [address] No, Physician 09/07/2024 1:00 PM EXPORT AGENT Office Visit [facility] [address] [facility] [place] [address] Kaur Fishman, OD AMD (age-related macular degeneration), bilateral (Primary Dx) 09/07/2024 Orders Only [facility] Hematology [facility] [address] [place] [address] Balaji Tovar MD PhD Sarcoma of left thigh (HCC) (Primary Dx) 09/06/2024 Orders Only [facility] Scanning, Provider 08/28/2024 Orders Only [facility] Oncology [facility] [address] [place] [address] Balaji Tvoar MD PhD History of sarcoma (Primary Dx) [...] on file Legal Sex Male 9:16 PM EXPORT AGENT Gender Identity Male 12/20/2019 7:46 PM CDT Sexual Orientation Straight 12/20/2019 7: 46 PM CDT Obstetrics History Last Filed Vital Signs Vital Sign Reading Time Taken Comments Blood Pressure 145/78 06/14/2024 8:53 AM EXPORT AGENT Pulse 92 06/14/2024 8:53 AM EXPORT AGENT Temperature 36.8 C (98.2 F) 06/14/2024 8:53 AM EXPORT AGENT Respiratory Rate 20 05/04/2024 1:07 PM CDT Oxygen Saturation 96% 06/14/2024 8:53 AM EXPORT AGENT Inhaled Oxygen Concentration - - Weight 87.5 kg (193 lb) 06/14/2024 8:51 AM EXPORT AGENT Height 172.7 cm (5' 7.99 ) 06/14/2024 8:51 AM CS T Body Mass Index 29.35 06/14/2024 8:51 AM EXPORT AGENT Plan of Treatment Scheduled Procedures Name Priority [...] history exists Medical Devices Implanted Type Area Machine Sweeper Brush Maker Device Identifier Shelf Expiration Date Model / Serial / Lot Synovis SendinBlue Meena Lynch Microvascular 3.5mm Ring Pin Protective Cover Jaw Assembly Latex Free [id number] - [id number] Implanted:Qty: 1 on 03/28/2024 by Lloyd Gay MD at [facility] Other - see comments Left: Leg Synovis SendinBlue Meena [id number] 03/21/2028 [id number] / / [id number] Depuy Mitek [id number] Quickanchor Plus Ethibond 2-0 V-5 Mini Le Roy Suture - [id number] Implanted:Qty: 1 on 07/27/2018 by Duane eNlson MD at [facility] Left: Thumb Depuy Mitek 03/04/2023 [id number] / / [id number] Depuy Mitek [id number] Quickanchor Plus Ethibond 2-0 V-5 Mini Le Roy Suture - [id number] Implanted:Qty: 1 on 07/27/2018 by Duane Nelson MD at [facility] Left: Thumb Depuy Mitek 03/04/2023 [id number] / / [id number] Ar[employer]rex [employer] Ar-8978-Cp Internalbrace Kit Hand Wrist Set Implant Ligament Augmentation - [id number] Implanted:Qty: 1 on 05/31/2019 by Duane Nelson MD at [facility] Right: Wrist [employer] [id number] 04/03/2024 AR-8978- CP / / [id number] Procedures Procedure Name Priority Date/Time Associated Diagnosis [...] - BOTH EYES Routine 09/07/2024 1:00 PM EXPORT AGENT AMD (age-related macular degeneration), bilateral SCAN - [...] WBC 4.8 3.8 - 10.8 Thousand/u L [facility] RBC, POC 4.95 4.20 - 5.80 Million/uL [facility] Hgb 14.8 13.2 - 17.1 g/dL [facility] Hct 45.7 38.5 - 50.0 % [facility] MCV 92.3 80.0 - 100.0 fL [employer] MCH 29.9 27.0 - 33.0 pg [employer] MCHC 32.4 32.0 - 36.0 g/dL [facility] Comment: For adults, a slight decrease in the calculated MCHC value (in the range of 30 to 32 g/dL) is most likely not clinically significant; however, it should be interpreted with caution in correlation with other red cell parameters and the patient's clinical condition. Rdw 14.2 11.0 - 15.0 % [employer] [facility] Platelets 173 140 - 400 Thousand/u L [employer] MPV 10.9 7.5 - 12.5 fL [employer] [facility] Neutrophils, abs 2,789 1,500 - 7,800 cells/uL [employer] [facility] Lymphocytes, abs 1,162 850 - 3,900 cells/uL [employer] [facility] Monocyte abs 619 200 - 950 cells/uL [employer] [facility] Eosinophils, abs 202 15 - 500 cells/uL [email or web address] Basophils, abs 29 0 - 200 cells/uL [employer] [facility] Neutrophils 58.1 % [email or web address] Lymphocyte pct 24.2 % [email or web address] Monocytes 12.9 % [email or web address] Eosinophils 4.2 % [employer] Basophils 0.6 % [email or web address] Blood 09/11/2024 9:00 AM CDT 09/11/2024 9:00 AM CDT Narrative [facility] - 09/11/2024 6:24 PM CDT FASTING:YES FASTING: YES us Balaji Tovar MD PhD LAB BLOOD ORDERABLE S Final Result [facility] [address] [place] [address] * (ABNORMAL) Comprehensive metabolic panel (09/11/2024 9:00 AM CDT) Pathologist [facility] Glucose 168(H) 65 - 99 mg/dL Risk I/O [facility] Comment: Fasting reference interval For someone without [...] Lockhart CO2 27 20 - 32 mmol/L Yoana Lockhart Calcium 8.5(L) 8.6 - 10.3 mg/dL [...] BLOOD ORDERABLE S Final Result YOANA Lockhart [address] [place] [address] * SCAN - RADIOLOGY/IMAGING (09/11/2024) Anatomical Region Laterality Modality Other us Provider Scanning Final Result * OCT, Retina - OU - Both Eyes (09/07/2024 1:00 PM EXPORT AGENT) Anatomical Region Laterality Modality Head Optical Coherenc [...] last revised 2018. Creatinine Ur 157.9 mg/dL [facility] Comment: Interpretive Data No reference range established. Current interpretive data was last revised 2018. Albumin Creatinine Ratio, Ur <8 1 - 29 mg/g [facility] Urine 05/04/2024 1:40 PM CDT 05/04/2024 5:23 PM CDT Kianna Rodríguez RN DIALYSIS LAB URINE ORDERABLES Final Re sult [facility] Department [place] [address] * (ABNORMAL) Hemoglobin A1c (05/04/2024 1:40 PM CDT) Hgb A1C 5.8(H) 4.0 - 5.6 % Estimated Average Glucose 120 mg/dL [facility] Comment: The ADA recommends reporting an [...] NP LAB BLOOD ORDERABLES Final Re sult [facility] Department [place] [address] * (ABNORMAL) Lipid panel (05/04/2024 1:40 PM [...] revised on 2018. Triglycerides 124 <=149 mg/dL [facility] Comment: Interpretive Data Ages < or = [...] on 2018. HDL 37(L) >=40 mg/dL [facility] Comment: Interpretive Data Ages < or = [...] 2018. LDL, calculated 76 <=129 mg/dL [facility] Comment: Interpretive Data Ages < or = [...] revised on 2024. Non-HDL Cholesterol 98 mg/dL [facility] Comment: Interpretive Data Ages < or [...] last revised on 2018. Chol/HDL ratio 4 [facility] Blood 05/04/2024 1:40 PM CDT 05/04/2024 5:23 PM CDT us Kianna Bakerclive RN DIALYSIS LAB BLOOD ORDERABLES Final Re sult [facility] Department [place] [address] * COLONOSCOPY (01/07/2023 7:50 AM CDT) Anatomical Region Laterality Modality Other Narrative Procedure Note Duane Good MD - 01/07/2023 7:50 AM CDT GI ENDOSCOPY [facility] Patient Name: [place] Procedure Date: 01/07/2023 7:50 AM Date of : 1945 Admit Type: Outpatient Age: 77 Gender: Male Attending MD: Duane Good M.D. Room: [facility] ENDOSCOPY ROOM 8 Note Status: Finalized Procedure: [...] scope was passed under direct vision.The [id number] endoscope was introduced through the anus and [...] business hours - Please call theNurse Coordinator: [phone]. After hours, evening, nights, weekends and holidays- Please call the hospital sealer operator at and ask for the GI fellow nutrition services aide. Electronically signed by Duane Good MD Duane Good M.D. 01/07/2023 8:36:02 AM . Number of Addenda: 0 Note Initiated On: 01/07/2023 7:50 AM Recognized by the [place] [employer] for promoting quality in endoscopy Duane Good MD ENDOSCOPY PROCEDURES Final Result from Last 3 Months or Most Recently Relevant to Health Maintenance Insurance T MEDICARE AET MEDICARE [facility] MEDICARE Advance Directives For more information, please contact: [phone] * Full Code (Latest Code Status on File) Date Activated Date Inactivated Comments 03/28/2024 7:53 PM 04/06/2024 4:56 PM * Full Code Date Activated Date Inactivated Comments 03/21/2024 12:53 PM 03/28/2024 7:53 PM * Full Code Date Activated Date Inactivated Comments 01/07/2023 7:47 AM 01/07/2023 1:15 PM Care Teams Coal Chemist Relationship Specialty Start Date End Date Bhavna Land MD [address] [facility] [address] [place] [address] PCP - General Sleep Medicine 12/11/20 Balaji Tovar MD PhD [address] [facility] [address] [place] [address] Medical Oncologist/Retail Sales Merchandiser Development Medical Oncology 01/25/24 Kianna Rodríguez NP [address] [facility] [place] [address] Internal Medicine 01/25/24 Kaur Fishman OD [address] [address] Referring Physician Optometry 09/14/24
--- OUTSIDE RECORDS SUMMARY | 2024-10-12 04:43 | XMS_ITS | Encounter Summary ---
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 Gender Identity Male 12/20/2019 7:46 PM CDT [...] on filedocumented in this encounter Care Teams Shipping Room Helper Relationship Specialty Start Date End Date Bhavna Land MD [address] [facility] [address] [place] [address] PCP - General Sleep Medicine 12/11/20 Balaji Tovar MD PhD [address] [facility] [address] [place] [address] Medical Oncologist/Historian Dramatic Arts Medical Oncology 01/25/24 Kianna Rodríguez NP [address] [address] Internal Medicine 01/25/24 Kaur Fishman OD [address] [address] Referring Physician Optometry 09/14/24 documented as of this encounter
--- OUTSIDE RECORDS SUMMARY | 2024-10-12 04:43 | XMS_ITS | Encounter Summary ---
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
== END 2024-10-12 04:43 | disposition home or self-care (01) ==
LOC: ANHED 04:41
PROVIDERS: Emergency Provider Emergency Medicine
DX: L02.212 Cutaneous abscess of back [any part, except buttock and flank] (principal)
CPT/HCPCS: 10060; 99283; A9270